=== PATIENT | female | born 1975 | race American Indian/Alaskan Native ===

== ENCOUNTER 2016-12-06 16:12 | Inpatient (IN) | payer OTHER, MEDICARE ==
[2016-12-06 16:25] VITALS: BMI 26.6
--- NOTE | 2016-12-06 17:08 | RAD ---
HISTORY: med clearence COMPARISON: No prior. FINDINGS: LUNGS: The pulmonary vasculature is slightly increased possibly due to poor inspiration with low lung volumes however the possibility of mild chronic compensated pulmonary edema/CHF not excluded. PLEURA: No significant pleural effusion identified, no pneumothorax apparent. CARDIOVASCULAR: Interval sternotomy and aortic valve replacement. Additionally, very thin metallic wires seen overlying the cardiac silhouette. Clinical correlation recommended. Heart size is within range of normal OSSEOUS STRUCTURES: No significant abnormalities. VISUALIZED UPPER ABDOMEN: Normal. OTHER FINDINGS: None. IMPRESSION: Interval sternotomy and aortic valve replacement. . The central pulmonary vasculature is slightly increased which may in part be due to low lung volumes however the possibility of mild chronic compensated pulmonary edema/CHF not excluded.
[2016-12-06] MEDS ORDERED: Vancomycin 1gm in NS 250ml 1 GM/250 ML BAG IVPB STA (17:33)
[2016-12-06 17:47] LABS: ADD MANUAL DIFF? NO
[2016-12-06 18:10] LABS: BASO # 0.02 K/mm3 (0.0-2.0); BASO % 0.2 % (0.0-3.0); EOS # 0.1 (0.0-0.7); EOS % 1.1 % (1.5-5.0); GRAN # 7.39 (1.4-6.5); GRAN % 68.6 % (50.0-68.0); HEMATOCRIT 39.3 % (36.0-48.0); LYMPH # 2.7 (1.2-3.4); LYMPH % 24.9 % (22.0-35.0); MEAN CELL VOLUME 87.3 fL (80.0-105.0); MEAN CORPUSCULAR HEMOGLOBIN 29.3 pg (25.0-35.0); MEAN CORPUSCULAR HGB CONC 33.6 g/dl (31.0-37.0); MEAN PLATELET VOLUME 9.9 fl (7.0-11.0); MONO # 0.6 (0.1-0.6); MONO % 5.2 % (1.0-6.0); PLATELET COUNT 267 10^3/uL (120.0-450.0); RED CELL DISTRIBUTION WIDTH 15.2 % (11.5-14.5); WHITE BLOOD COUNT 10.8 10^3/ul (4.5-11.0)
--- NOTE | 2016-12-06 18:10 | ED PDOC ---
Arrival/HPI - General Chief Complaint: Medical Clearance Time Seen by Provider: 12/06/16 16:38 - History of Present Illness Narrative History of Present Illness (Text): 12/06/16 16:38 A 41 year old female presents to the emergency department for evaluation of a 2 year duration of a reoccurring inferior right breast abscess. Patient was seen by Dr. Drake today and the patient was send to the emergency department for admission. Patient denies any fever, or other complaints at this time. PMD: Dr. Haddad Surgeon: Dr. Drake Time/Duration: Other (2 years) Symptom Onset: Other Symptom Course: Intermittent Quality: Other Activities at Onset: Rest Context: Home Past Medical History - Provider Review Nursing Documentation Reviewed: Yes - Reproductive Menopause: No - Cardiac Hx Cardiac Disorders: Yes Hx Hypertension: Yes Other/Comment: Pulmonary valve replacement - Pulmonary Hx Respiratory Disorders: No - Neurological Hx Neurological Disorder: No - HEENT Hx HEENT Disorder: No - Renal Hx Renal Disorder: No - Endocrine/Metabolic Hx Endocrine Disorders: No - Hematological/Oncological Hx Blood Disorders: No - Integumentary Hx Dermatological Disorder: No - Musculoskeletal/Rheumatological Hx Musculoskeletal Disorders: No - Gastrointestinal Hx Gastrointestinal Disorders: No - Genitourinary/Gynecological Hx Genitourinary Disorders: No - Psychiatric Hx Psychophysiologic Disorder: No Hx Substance Use: Yes (marijuana) - Surgical History Hx Valve Replacement: Yes Family/Social History - Physician Review Nursing Documentation Reviewed: Yes Family/Social History: Unknown Family HX Smoking Status: Light Smoker < 10 Cigarettes Daily Hx Alcohol Use: No Hx Substance Use: Yes (marijuana) Allergies/Home Meds Allergies/Adverse Reactions: Allergies dopamine Allergy (Verified 12/06/16 22:08) ITCHING Home Medications: Home Meds Medication Instructions Recorded Confirmed Nebivolol [Bystolic] 20 mg PO DAILY 12/06/16 12/06/16 Olmesartan Medoxomil [Benicar] 40 mg PO DAILY 12/06/16 12/06/16 Physical Exam - Physical Exam Narrative Physical Exam (Text): - Review of Systems Constitutional: Normal. absent: Fatigue, Weight Change, Fevers Eyes: Normal ENT: Normal Respiratory: Normal absent: SOB, Cough, Sputum Cardiovascular: Normal absent: Chest pain, Palpitations, Syncope Gastrointestinal: Normal absent: Abdominal pain, Diarrhea, Nausea, Vomiting Genitourinary: Normal. absent: Dysuria, Frequency, Hematuria Musculoskeletal: Normal. absent: Arthralgias, Back Pain, Neck Pain Skin: Right breast abscess. Neurological: Normal absent: Focal Weakness Endocrine: Normal Hemo/Lymphatic: Normal Psychiatric: Normal - Physical exam Patient appears age appropriate, speaking full sentences without difficulty - Systems Exam Head: Present: Atraumatic, Normocephalic Pupils: Present: PERRL Extraocular Muscles: Present: EOMI Conjunctiva: Present: Normal Mouth: Present: Moist Mucous Membranes Neck: Present: Normal Range of Motion. No: MIDLINE TENDERNESS, Paraspinal Tenderness Respiratory/Chest: Present: Clear to Auscultation, Good Air Exchange. No: Respiratory Distress, Accessory Muscle Use, Tachypneic Cardiovascular: Present: Regular Rate and Rhythm, Normal S1, S2, Peripheral Pulses Present. No: Murmurs Breast/Axillary: Right breast is erythematous, swollen, warm to the touch and tender around the nipple. No fluctuance. Small non-draining opening noted. 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 Abdomen: Present: Normal Bowel Sounds, No: Tenderness, Peritoneal Signs, Rebound, Guarding, Distention Back: Present: Normal Inspection. No: Midline Tenderness, Paraspinal Tenderness Upper Extremity: Present: Normal Inspection. No: Cyanosis, Edema Lower Extremity: Present: Normal Inspection. No: Edema Neurological: Present: GCS=15, Speech Normal, cranial nerves II through XII fully intact with no cerebellar abnormality, neuro-sensory fully intact. No focal neurological deficits. Skin: Present: Warm, Dry, Normal Color. No: Rashes Lymphatic: Present: OX3, NI, NC Psychiatric: Present: Alert, Oriented x 3, Normal Insight, Normal Concentration Vital Signs Reviewed: Yes Vital Signs Temp Pulse Resp BP Pulse Ox 12/06/16 18:23 99.0 F 74 18 153/101 H 100 12/06/16 16:23 99.1 F 83 18 213/133 H 98 Temperature: Afebrile Blood Pressure: Hypertensive Pulse: Regular Respiratory Rate: Normal Appearance: Positive for: Well-Appearing, Non-Toxic, Comfortable Pain Distress: None Mental Status: Positive for: Alert and Oriented X 3 Medical Decision Making ED Course and Treatment: 12/06/16 16:38 Impression: A 41 year old female with a reccurring breast abscess. Differential Diagnosis include but are not limited to: Abscess Plan: -- Chest X-ray -- Labs -- Reassess and disposition Prior Visits: Notes and results from previous visits were reviewed. The patient has a Mammogram on 10/17/16, which showed no evidence of malignancy but did show bilateral axillary complexes consistent with abscesses. Progress Notes: 12/06/16 17:10 Chest X-ray: Creator : Hiren Nails MD IMPRESSION: Interval sternotomy and aortic valve replacement. The central pulmonary vasculature is slightly increased which may in part be due to low lung volumes however the possibility of mild chronic compensated pulmonary edema /CHF not excluded. 12/06/16 17:[address] Drake in detail. He states he will take the patient to the OR tomorrow and to keep the patient NPO past midnight. I have discussed the results and plan with the patient, who expresses understanding. Patient given the opportunity to ask question, all questions were answered and there is agreement with the plan to be admitted to the hospital. - Lab Interpretations Lab Results: 12/06/16 17:35 12/06/16 17:35 Lab Results 12/06/16 17:35: Sodium 141, Potassium 4.1, Chloride 103, Carbon Dioxide 29, Anion Gap 13, BUN 13, Creatinine 0.8, Est GFR ( Amer) > 60, Est GFR (Non- Af Amer) > 60, Random Glucose 90, Calcium 9.7, Total Bilirubin 0.4, AST 25, ALT 31, Alkaline Phosphatase 59, Total Protein 7.8, Albumin 3.9, Globulin 3.9, Albumin/Globulin Ratio 1.0 L 12/06/16 17:35: PT 11.4, INR 1.06, APTT 27.2 12/06/16 17:35: WBC 10.8, RBC 4.50, Hgb 13.2, Hct 39.3, MCV 87.3, MCH 29.3, MCHC 33.6, RDW 15.2 H, Plt Count 267, MPV 9.9, Gran % 68.6 H, Lymph % (Auto) 24.9, [place] % (Auto) 5.2, Eos % (Auto) 1.1 L, Baso % (Auto) 0.2, Gran # 7.39 H, Lymph # 2.7, [place] # 0.6, Eos # 0.1, Baso # 0.02 I have reviewed the lab results: Yes - RAD Interpretation Radiology Orders: 12/06/16 16:44 CHEST PORTABLE [RAD] Stat - Medication Orders Current Medication Orders: Discontinued Medications Acetaminophen (Tylenol 325mg Tab) 650 mg PO Q6 PRN PRN Reason: Fever >100.4 F Last Admin: 12/06/16 21:08 Dose: 650 mg Cefazolin Sodium (Ancef) Confirm Administered Dose 1 gm .ROUTE .STK-MED ONE Stop: 12/07/16 11:16 Last Admin: 12/07/16 11:15 Dose: 1 gm Clonidine HCl (Catapres Tts1 0.1 Mg/24 Hr) 1 patch TD ONCE ONE Stop: 12/06/16 20:43 Last Admin: 12/06/16 21:05 Dose: 1 patch Clonidine HCl (Catapres) 0.1 mg PO BID STA Stop: 12/07/16 12:42 Clonidine HCl (Catapres) 0.1 mg PO .STK-MED ONE Stop: 12/07/16 12:51 Last Admin: 12/07/16 12:50 Dose: 0.1 mg Dexamethasone (Decadron Inj) Confirm Administered Dose 10 mg .ROUTE .STK-MED ONE Stop: 12/07/16 11:36 Diphenhydramine HCl (Benadryl) Confirm Administered Dose 50 mg .ROUTE .STK-MED ONE Stop: 12/07/16 12:12 Diphenhydramine HCl (Benadryl) 25 mg IVP ONCE ONE Stop: 12/07/16 12:16 Diphenhydramine HCl (Benadryl) 25 mg IVP .STK-MED ONE Stop: 12/07/16 12:16 Last Admin: 12/07/16 12:15 Dose: 25 mg Fentanyl (Fentanyl) Confirm Administered Dose 100 mcg .ROUTE .STK-MED ONE Stop: 12/07/16 11:03 Fentanyl (Fentanyl) Confirm Administered Dose 100 mcg .ROUTE .STK-MED ONE Stop: 12/07/16 11:25 Furosemide (Lasix) 40 mg IVP ONCE ONE Stop: 12/06/16 20:42 Last Admin: 12/06/16 21:06 Dose: 40 mg Hydralazine HCl (Apresoline) 10 mg PO QID PRN PRN Reason: for SBP>170 & diastolic>100 Last Admin: 12/07/16 14:39 Dose: 10 mg Hydromorphone HCl (Dilaudid) 0.5 mg IVP Q15M PRN PRN Reason: Pain, moderate (4-7) Vancomycin HCl (Vancomycin 1gm) 1 gm in 250 mls @ 133.333 mls/hr IVPB STAT STA PRN Reason: Protocol Stop: 12/06/16 19:25 Last Admin: 12/06/16 18:06 Dose: 133.333 mls/hr Vancomycin HCl (Vancomycin 1gm) 1 gm in 250 mls @ 167 mls/hr IVPB Q12H SARITA PRN Reason: Protocol Last Admin: 12/08/16 07:49 Dose: 167 mls/hr Sodium Chloride (Sodium Chloride 0.9%) 1,000 mls @ 100 mls/hr IV .Q10H SARITA Last Admin: 12/08/16 08:01 Dose: 100 mls/hr Lactated Ringer's (Lactated Ringer's) 1,000 mls @ 75 mls/hr IV .[id number] [facility] Stop: 12/07/16 14:04 Labetalol HCl (Trandate) 100 mg PO BID [facility] Labetalol HCl (Trandate) 100 mg PO BID [facility] Last Admin: 12/08/16 09:22 Dose: 100 mg Lidocaine (Lidocaine (Bolus)) Confirm Administered Dose 100 mg IV .STK-MED ONE Stop: 12/07/16 11:03 Lisinopril (Zestril) 40 mg PO DAILY [facility] Lisinopril (Zestril) 40 mg PO ONCE STA Stop: 12/06/16 20:44 Last Admin: 12/06/16 21:09 Dose: 40 mg Lisinopril (Zestril) 40 mg PO DAILY [facility] Last Admin: 12/08/16 09:22 Dose: 40 mg Midazolam HCl (Versed Inj) Confirm Administered Dose 2 mg .ROUTE .STK-MED ONE Stop: 12/07/16 11:03 Morphine Sulfate (Morphine) 2 mg IVP Q4H PRN PRN Reason: Pain, moderate (4-7) Last Admin: 12/07/16 21:38 Dose: 2 mg Re-Assess: [facility] Pain Assessment Document 12/07/16 22:38 MARI (Rec: 12/08/16 07:04 MARI [id number]) Pain Reassessment Is this a pain reassessment? Yes Presence of Pain Presence of Pain No Ondansetron HCl (Zofran Inj) 4 mg IVP Q4H PRN PRN Reason: Nausea/Vomiting Ondansetron HCl (Zofran Inj) Confirm Administered Dose 4 mg .ROUTE .STK-MED ONE Stop: 12/07/16 11:36 Ondansetron HCl (Zofran Inj) 4 mg IVP ONCE PRN PRN Reason: Nausea/Vomiting Oxycodone/Acetaminophen (Percocet 5/325 Mg Tab) 1 tab PO Q4H PRN PRN Reason: Pain, moderate (4-7) Stop: 12/10/16 11:53 Pantoprazole Sodium (Protonix Inj) 40 mg IVP DAILY [facility] Last Admin: 12/07/16 13:55 Dose: Pantoprazole Sodium (Protonix Ec Tab) 40 mg PO ACB [facility] Last Admin: 12/08/16 08:04 Dose: 40 mg Propofol (Diprivan) Confirm Administered Dose 200 mg .ROUTE .STK-MED ONE Stop: 12/07/16 11:03 - Scribe Statement The provider has reviewed the documentation as recorded by the Agnes Steiner Provider Scribe Attestation: All medical record entries made by the Agnes were at my direction and personally dictated by me. I have reviewed the chart and agree that the record accurately reflects my personal performance of the history, physical exam, medical decision making, and the department course for this patient. I have also personally directed, reviewed, and agree with the discharge instructions and disposition. Disposition/Present on Arrival - Present on Arrival Any Indicators Present on Arrival: No History of DVT/PE: No History of Uncontrolled Diabetes: No Urinary Catheter: No History of Decub. Ulcer: No History Surgical Site Infection Following: None - Disposition Have Diagnosis and Disposition been Completed?: Yes Diagnosis: Abscess Disposition: HOSPITALIZED Disposition Time: 17:45 Patient Plan: Admission Condition: GOOD
[2016-12-06 18:12] LABS: ALKALINE PHOSPHATASE 59 U/L (38-133); ALT/SGPT 31 U/L (7-56); AST/SGOT 25 U/L (15-39); BILIRUBIN,TOTAL 0.4 mg/dL (0.2-1.3); BLOOD UREA NITROGEN 13 mg/dL (7-21); CALCIUM 9.7 mg/dL (8.4-10.5); CARBON DIOXIDE 29 mmol/L (21-33); CHLORIDE 103 mmol/L (98-107); GFR AFRICAN-AMERICAN > 60; GLUCOSE,RANDOM 90 mg/dL (70-110); POTASSIUM 4.1 mmol/L (3.6-5.0); SODIUM 141 mmol/L (132-148); TOTAL PROTEIN 7.8 g/dL (5.8-8.3)
[2016-12-06 18:17] LABS: INR 1.06 (0.93-1.08); PARTIAL THROMBOPLASTIN TIME 27.2 Seconds (23.7-30.8)
[2016-12-06] MEDS: Morphine 2 mg/ml ISec IVP PRN (21:07)
--- NOTE | 2016-12-06 22:07 | CP.PCM.HP ---
History of Present Illness - History of Present Illness History of Present Illness: General Surgery H&P for Dr. 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 Drake office for painful, swollen right breast for 2 days with drainage. Patient states that she woke up on Tuesday morning with redness, pain and swelling in the right breast. She states that this is a recurrent problem for her for years. She had a surgery to excise a sebaceous cyst in 2010 and an I&D for a R breast abscess last year. After the operation last year the wound never closed all the way and whenever she has her menses she notes an increase in pain and drainage of a foul smelling, purulent fluid from a small wound. This last 1-2 days and then resolves. The past few days, however, she states her symptoms are worse than usual and have not resolved. Patient reports that she also has swelling and pain in her left axilla and thought she might be developing an infection there as well. Patient reports feeling midly febrile since last night, with chills, but denies CP, SOB, cough, tachycardia, nausea, vomiting, diarrhea, constipation , numbness or tingling anywhere, back pain, or any sick contacts. Patient states that she has a chronic problem with intermittent pedal edema, for which she used to take lasix, but that was D/C'd by her PMD, Dr. Araiza. 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 absent: Wheezing - Gastrointestinal Gastrointestinal: absent: Abdominal Pain, Constipation, Diarrhea, Heartburn, Nausea, Vomiting - Genitourinary Genitourinary: absent: Dysuria, Flank Pain, Hematuria - Reproductive: Female Reproductive:Female: Currently Menstual. absent: S/P Hysterectomy, Menopausal, Post Menopausal - Menstruation Menstruation: Currently Menstual - Musculoskeletal Musculoskeletal: absent: Back Pain, Numbness, Tingling - Integumentary Integumentary: As Per HPI - Neurological Neurological: absent: Dizziness, Numbness, Tingling - Psychiatric Psychiatric: Anxiety Past Patient History - Past Medical History & Family History Past Family History: Reviewed and not pertinent - Past Social History Smoking Status: Light Smoker < 10 Cigarettes Daily - CARDIAC Hx Cardiac Disorders: Yes Hx Hypertension: Yes Other/Comment: Pulmonary valve replacement - PULMONARY Hx Respiratory Disorders: No - NEUROLOGICAL Hx Neurological Disorder: No - HEENT Hx HEENT Problems: No - RENAL Hx Chronic Kidney Disease: No - ENDOCRINE/METABOLIC Hx Endocrine Disorders: No - HEMATOLOGICAL/ONCOLOGICAL Hx Blood Disorders: No - INTEGUMENTARY Hx Dermatological Problems: No - MUSCULOSKELETAL/RHEUMATOLOGICAL Hx Musculoskeletal Disorders: No - GASTROINTESTINAL Hx Gastrointestinal Disorders: No - GENITOURINARY/GYNECOLOGICAL Hx Genitourinary Disorders: No - PSYCHIATRIC Hx Psychophysiologic Disorder: No Hx Substance Use: Yes (marijuana) - SURGICAL HISTORY Hx Surgeries: Yes Hx Section: Yes Hx Valve Replacement: Yes Other/Comment: Multiple I&D's of R Breast and BL axilla abscesses Meds Allergies/Adverse Reactions: Allergies Allergy/AdvReac Type Severity Reaction Status Date / Time dopamine Allergy ITCHING Verified 12/06/16 22:08 Physical Exam - Constitutional Appears: Well, Non-toxic, No Acute Distress - Head Exam Head Exam: ATRAUMATIC, NORMOCEPHALIC - Eye Exam Eye Exam: Normal appearance. absent: Conjunctival injection, Scleral icterus - ENT Exam ENT Exam: Mucous Membranes Moist, Normal Oropharynx - Respiratory Exam Respiratory Exam: Clear to Auscultation Bilateral, NORMAL BREATHING PATTERN. absent: Accessory Muscle Use, Respiratory Distress - Cardiovascular Exam Cardiovascular Exam: REGULAR RHYTHM, +S1, +S2. absent: Systolic Murmur - GI/Abdominal Exam GI & Abdominal Exam: Soft. absent: Distended, Tenderness - Extremities Exam Extremities exam: Positive for: pedal edema (trace pitting edema on feet and calves BL), pedal pulses present. Negative for: calf tenderness, tenderness Additional comments: Surgical scars present in Axilla BL, moderate tenderness to palpation BL, Mild swelling in the L axilla with no definite fluctuance or expressible drainage - Back Exam Back exam: NORMAL INSPECTION. absent: CVA tenderness (L), CVA tenderness (R), paraspinal tenderness - Neurological Exam Neurological exam: Alert, Oriented x3 - Psychiatric Exam Psychiatric exam: Normal Affect, Normal Mood - Skin Skin Exam: Dry, Warm Additional comments: R breast cellulitis, inverted nipple, and small area of skin breakdown on the medial edge of the nipple with minimal amount of brown fluid expressible, tender to the touch with some fluctuation palpable Results - Vital Signs Recent Vital Signs: Last Vital Signs Temp 99.0 F 12/06/16 18:23 Pulse 95 H 12/06/16 21:05 Resp 18 12/06/16 18:23 BP 198/96 H 12/06/16 21:06 Pulse Ox 100 12/06/16 18:23 - Labs Result Diagrams: 12/06/16 17:35 12/06/16 17:35 Assessment & Plan - Assessment and Plan (Free Text) Assessment: 41 Americal female with PMH of HTN, pulmonary valve replacement x2, and recurrent right breast abscess and hydradenitis spuritiva of BL axilla who presented to the ED for pre-op admission afebrile, HTNsive at 213/133, normocardic CXR: increased pulmonary vasculature indicative of low lung volumes vs mild chronic compensated pulmonary edema vs CHF 10/17/16 Mammogram: no malignancy, BL axillary complexities consistent with abscesses 10/17/16 breast US: simple cyst of R breast @9 o'clock, BL axillary subcutaneous collections in areas of known abscesses Plan -OR tomorrow for I&D of right breast probable abscess -Cardiology consult for pre-op clearance/HTN -repeat CXR and EKG in the AM -f/u AM labs -Clonidine, lisinopril, lasix, labetolol for HTN, will modify as needed -NPO after midnight -no IVF given HTN -morphine for analgesia -anti-emetics, protonix, SCD's Patient discussed with Dr. Vidal Norwood, PGY1
[2016-12-07] MEDS ORDERED: Sodium Chloride 0.9% 100 ML IV SCH
[2016-12-07 07:05] LABS: ADD MANUAL DIFF? NO
[2016-12-07 07:15] LABS: BASO # 0.01 K/mm3 (0.0-2.0); BASO % 0.1 % (0.0-3.0); EOS # 0.2 (0.0-0.7); GRAN # 5.68 (1.4-6.5); GRAN % 71.2 % (50.0-68.0); LYMPH # 1.7 (1.2-3.4); LYMPH % 20.8 % (22.0-35.0); MEAN CELL VOLUME 86.4 fL (80.0-105.0); MEAN CORPUSCULAR HEMOGLOBIN 28.7 pg (25.0-35.0); MEAN CORPUSCULAR HGB CONC 33.3 g/dl (31.0-37.0); MEAN PLATELET VOLUME 9.6 fl (7.0-11.0); MONO # 0.5 (0.1-0.6); MONO % 5.9 % (1.0-6.0); PLATELET COUNT 252 10^3/uL (120.0-450.0); RED CELL DISTRIBUTION WIDTH 15.1 % (11.5-14.5)
[2016-12-07 07:41] LABS: ALKALINE PHOSPHATASE 66 U/L (38-133); ALT/SGPT 31 U/L (7-56); AST/SGOT 28 U/L (15-39); BILIRUBIN,TOTAL 0.4 mg/dL (0.2-1.3); BLOOD UREA NITROGEN 12 mg/dL (7-21); CALCIUM 8.7 mg/dL (8.4-10.5); CARBON DIOXIDE 26 mmol/L (21-33); CHLORIDE 105 mmol/L (95-110); GFR AFRICAN-AMERICAN > 60; GLUCOSE,RANDOM 102 mg/dL (70-110); POTASSIUM 3.9 mmol/L (3.6-5.0); SODIUM 138 mmol/L (132-148); TOTAL PROTEIN 7.9 g/dL (5.8-8.3)
--- NOTE | 2016-12-07 08:29 | RAD ---
HISTORY: re-eval pulm edema COMPARISON: Comparison is made to the previous study dated 12/06/2016 FINDINGS: LUNGS: Interval mild improvement in the lungs since the previous exam. No evidence of new infiltrate or consolidation in the lungs. PLEURA: No significant pleural effusion identified, no pneumothorax apparent. CARDIOVASCULAR: The cardiac silhouette is mildly enlarged/upper normal limit in size. Post cardiac surgery changes and metallic valve are again seen. OSSEOUS STRUCTURES: No significant abnormalities. VISUALIZED UPPER ABDOMEN: Normal. OTHER FINDINGS: None. IMPRESSION: Interval mild improvement in the lungs since the previous study. Otherwise no significant interval change.
[2016-12-07] MEDS: Sodium Chloride 0.9% 1,000 ML IV SCH ×2 (09:27→18:09)
--- NOTE | 2016-12-07 09:50 | CARD ---
APPROVED REPORT EKG Measurement Heart [id number] <Conclusion> Normal sinus rhythm Possible Left atrial enlargement Anteroseptal infarct, age undetermined Abnormal ECG
--- NOTE | 2016-12-07 10:02 | CP.PCM.CON ---
<Bambi Keys - Last Filed: 12/07/16 14:39> History of Present Illness - History of Present Illness History of Present Illness: Medicine consult note for Dr Raymundo/ Dr Haddad service Reason for consult: uncontrolled htn Patient is a 41 y/o with PMH of htn, h/o congenital heart disease with pulmonic valve replacement x2, recurrent breast abscess presented with right breast abscesses, with drainage. Patient is currently admitted under surgical service, and medicine is consulted for management of patient's uncontrolled hypertension. Patient states she didn't' take her BP meds prior to presenting to the ED yesterday. Patient states she supposed to be taking benicar and bystolis at home. Patient states her BP has always been the high, in 160s systolic even when taking BP meds. Patient denies chest pain, sob, headache, dizziness. Patient denies n/v/d. Patient sees Dr Haddad in the office, last time she say him was few weeks ago. 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 Social: used to smoke marijuana. Denies alcohol, tobacco or illicit drug use. Lives with spouse and daughter. Allergy: dopamine Home meds: please see emr for full list. Review of Systems - Review of Systems All systems: reviewed and no additional remarkable complaints except Review of Systems: As mentioned in the HPI. Past Patient History - Tetanus Immunizations Tetanus Immunization: Unknown - Past Medical History & Family History Past Family History: Reviewed and not pertinent - Past Social History Smoking Status: Light Smoker < 10 Cigarettes Daily Alcohol: None Drugs: Denies Home Situation {Lives}: With Family - CARDIAC Hx Cardiac Disorders: Yes Hx Heart Murmur: Yes Other/Comment: Pulmonary valve replacement x2. Open cardiac valve replacement x2 - PULMONARY Hx Respiratory Disorders: Yes Hx Pneumonia: Yes - NEUROLOGICAL Hx Neurological Disorder: No - HEENT Hx HEENT Problems: No - RENAL Hx Chronic Kidney Disease: No - ENDOCRINE/METABOLIC Hx Endocrine Disorders: No - HEMATOLOGICAL/ONCOLOGICAL Hx Blood Disorders: No - INTEGUMENTARY Hx Dermatological Problems: Yes Other/Comment: Recurrent abcesses - MUSCULOSKELETAL/RHEUMATOLOGICAL Hx Musculoskeletal Disorders: No Hx Falls: No - GASTROINTESTINAL Hx Gastrointestinal Disorders: No - GENITOURINARY/GYNECOLOGICAL Hx Genitourinary Disorders: No - PSYCHIATRIC Hx Psychophysiologic Disorder: Yes Hx Anxiety: Yes Hx Substance Use: Yes - SURGICAL HISTORY Hx Surgeries: Yes Meds Allergies/Adverse Reactions: Allergies Allergy/AdvReac Type Severity Reaction Status Date / Time dopamine Allergy ITCHING Verified 12/06/16 22:08 - Medications Medications: Current Medications Acetaminophen (Tylenol 325mg Tab) 650 mg PO Q6 PRN PRN Reason: Fever >100.4 F Last Admin: 12/06/16 21:08 Dose: 650 mg Clonidine HCl (Catapres) 0.1 mg PO BID PRN PRN Reason: Systolic Blood Pressure Vancomycin HCl (Vancomycin 1gm) 1 gm in 250 mls @ 167 mls/hr IVPB Q12H [facility] PRN Reason: Protocol Sodium Chloride (Sodium Chloride 0.9%) 1,000 mls @ 100 mls/hr IV .Q10H [facility] Last Admin: 12/07/16 09:27 Dose: 100 mls/hr Labetalol HCl (Trandate) 100 mg PO BID [facility] Last Admin: 12/07/16 09:21 Dose: 100 mg Lisinopril (Zestril) 40 mg PO DAILY [facility] Morphine Sulfate (Morphine) 2 mg IVP Q4H PRN PRN Reason: Pain, moderate (4-7) Last Admin: 12/06/16 21:07 Dose: 2 mg Ondansetron HCl (Zofran Inj) 4 mg IVP Q4H PRN PRN Reason: Nausea/Vomiting Pantoprazole Sodium (Protonix Inj) 40 mg IVP DAILY [facility] Physical Exam - Constitutional Appears: No Acute Distress - Head Exam Head Exam: ATRAUMATIC, NORMAL INSPECTION, NORMOCEPHALIC - Eye Exam Eye Exam: Normal appearance, PERRL. absent: Scleral icterus - ENT Exam ENT Exam: Mucous Membranes Dry - Neck Exam Neck exam: Positive for: Normal Inspection - Respiratory Exam Respiratory Exam: Clear to Auscultation Bilateral, NORMAL BREATHING PATTERN. absent: Rhonchi, Wheezes, Respiratory Distress, Stridor - Cardiovascular Exam Cardiovascular Exam: REGULAR RHYTHM, RRR, +S1, +S2. absent: Irregular Rhythm, Systolic Murmur - GI/Abdominal Exam GI & Abdominal Exam: Normal Bowel Sounds, Soft. absent: Distended, Firm, Tenderness - Extremities Exam Extremities exam: Positive for: normal inspection. Negative for: pedal edema - Back Exam Back exam: NORMAL INSPECTION - Neurological Exam Neurological exam: Alert, Oriented x3 - Psychiatric Exam Psychiatric exam: Normal Affect, Normal Mood - Skin Skin Exam: Normal Color, Warm Additional comments: Right side of the breast with clean dressing. Results - Vital Signs Recent Vital Signs: Last Vital Signs Temp 98.4 F 12/07/16 09:40 Pulse 72 12/07/16 09:40 Resp 23 12/07/16 09:40 BP 196/106 H 12/07/16 09:40 Pulse Ox 98 12/07/16 09:40 - Labs Result Diagrams: 12/07/16 06:00 12/07/16 06:00 Labs: Laboratory Results - last 24 hr 12/07/16 12/07/16 06:00 06:00 WBC 8.0 D RBC 4.63 Hgb 13.3 Hct 40.0 MCV 86.4 MCH 28.7 MCHC 33.3 RDW 15.1 H Plt Count 252 MPV 9.6 Gran % 71.2 H Lymph % (Auto) 20.8 L Hopkins % (Auto) 5.9 Eos % (Auto) 2.0 Baso % (Auto) 0.1 Gran # 5.68 Lymph # 1.7 Hopkins # 0.5 Eos # 0.2 Baso # 0.01 Sodium 138 Potassium 3.9 Chloride 105 Carbon Dioxide 26 Anion Gap 11 BUN 12 Creatinine 0.7 Est GFR ( Amer) > 60 Est GFR (Non-Af Amer) > 60 Random Glucose 102 Calcium 8.7 Total Bilirubin 0.4 AST 28 ALT 31 Alkaline Phosphatase 66 Total Protein 7.9 Albumin 3.9 Globulin 4.0 Albumin/Globulin Ratio 1.0 L Assessment & Plan - Assessment and Plan (Free Text) Assessment: Patient is a 41 y/o with PMH of htn, aortic valve replacement, recurrent breast abscess admitted with breast abscess. Medicine is consulted for management of htn. Plan: 1) Uncontrolled htn likely secondary to medication non compliance. -Patient is currently on lisinopril 40 mg daily, and labetalol 100 mg bid. - Patient is also on hydralazine prn - Will continue to monitor BP. - heart healthy diet 2) Breast abscess - management as per surgical team. 3) DVT/Gi prophylaxis: SCDs, and protonix. Patient seen, examined, case discussed with the attending. - Date & Time Date: 12/07/16 Time: 14:00 <Butch Raymundo - Last Filed: 12/31/16 08:48> Results - Vital Signs Recent Vital Signs: Last Vital Signs Temp 98.5 F 12/08/16 06:00 Pulse 98 H 12/08/16 09:22 Resp 20 12/08/16 06:00 BP 155/65 H 12/08/16 09:22 Pulse Ox 98 12/08/16 06:00 - Labs Result Diagrams: 12/08/16 07:00 12/08/16 07:00 Attending/Attestation - Attestation I have personally seen and examined this patient.: Yes I have fully participated in the care of the patient.: Yes I have reviewed all pertinent clinical information: Yes Notes (Text): 12/31/16 08:48 Medical record note made by the resident after discussion with my direction and input after the patient was personally seen and examined by me. I have reviewed the chart and agree that the record reflects my personal performance of history, physical, data review and course for the patient that I have planned.
[2016-12-07 10:18] VITALS: RESP 20
[2016-12-07] MEDS ORDERED: Midazolam 2 MG/2 ML VIAL ONE (11:02)
[2016-12-07] MEDS ORDERED: Propofol 10 mg/ml Inj (20 ML) ONE (11:02)
[2016-12-07] MEDS ORDERED: Oxycodone/Acetaminophen 5/325 mg Tab PO PRN (11:52)
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
--- NOTE | 2016-12-07 11:58 | PCM.SURG1 ---
Surgeon's Initial Post Op Note - Surgeon's Notes Surgeon: jacob Toaster Element Repairer: none Type of Anesthesia: General LMA Anesthesia Administered By: Dr Kirby Pre-Operative Diagnosis: Rec R breast abscess Operative Findings: abscess Post-Operative Diagnosis: same Operation Performed: Partial Mastectomy(Debridement) Specimen/Specimens Removed: Portion breast Estimated Blood Loss: EBL {In ML}: 10 Blood Products Given: N/A Drains Used: No Drains Post-Op Condition: Good Date of Surgery/Procedure: 12/07/16 Time of Surgery/Procedure: 11:57
[2016-12-07] MEDS ORDERED: HYDROmorphone 0.5 mg/0.5 ml ISec IVP PRN ×2 (12:03→12:07)
[2016-12-07] MEDS ORDERED: Lactated Ringer's 1,000 ML IV SCH (12:03)
[2016-12-07] MEDS ORDERED: DiphenhydrAMINE 50 mg/ml Inj ONE (12:11)
--- NOTE | 2016-12-07 12:12 | OP ---
PROCEDURE DATE: 12/07/2016 SURGEON: Carlitos Drake MD NATIONAL SALES EXECUTIVE: Dr. Kirby ANESTHESIA: General -- LMA -- Marcaine 0.5-13 mL. PREOPERATIVE DIAGNOSES: 1. Recurring right breast abscess. 2. Hidradenitis suppurativa bilateral axilla. 3. Hypertensive coronary artery disease. POSTOPERATIVE DIAGNOSES: 1. Recurring right breast abscess. 2. Hidradenitis suppurativa bilateral axilla. 3. Hypertensive coronary artery disease. PROCEDURES: 12/07/2016: 1. Right partial mastectomy. 2. Drainage of abscess. OPERATIVE INDICATION: The patient is a 41-year-old female with an extremely extensi ve cardiovascular history of having had 2 heart surgeries with valve replacements (biologic) and a hi story of very severe hypertension. She has been developing axillary hidradenitis that has been conse rvatively managed at this point and will address that in the future. For the past several menstrual cycles each month, she develops extremely exquisite pain, swelling and drainage from her right breast . No longer able to take this, she comes to the Emergency Room where she is admitted, given antibiot ics, blood pressure is controlled (240/140) and now brought to the operating room for a debridement a nd removal of the ductal system under the nipple. Risks, benefits and alternatives with their antici pated outcomes were discussed with the patient. OPERATIVE NOTE: The patient is brought to the operating room from the holding area. The area on the right breast has been marked with pen. She is identified by her wrist band, undergoes timeout proce dure, and is placed on the table in a supine manner. Following the induction of general anesthesia and the insertion of an intralaryngeal mask, the right breast is prepped with Betadine and she is aseptically draped. Circumareolar incision is made in the right breast from 3 o'clock to 12 o'clock superiorly with caute ry dissection down to the breast tissues past the skin. Utilizing dissection with the cautery scalpe l and hemostasis with a coagulating current, the ductal system and a large portion of the anterior br east is dissected free (partial mastectomy). The ductal content is cultured aerobically and anaerobi sandoval and the nipple is re-everted with a 2-0 Polysorb [id number] suture from the inside. The w ound is now lavaged with saline. The specimen is submitted to pathology in formalin and the skin is closed with several sutures of 0 Prolene interrupted suture and the wound is packed with iodoform gau ze and a dry dressing applied. The patient is awakened, extubated and transported to the recovery room in a satisfactory condition. Sponge, instrument and suture count were verified as correct at the end of the procedure. Estimated blood loss during this procedure was less than 10 mL of blood. This dictation will be electronically signed without being read. Carlitos Drake MD cc: [phone] TT: 12/07/2016 12:11:44 en
[2016-12-07] MEDS ORDERED: DiphenhydrAMINE 50 mg/ml Inj IVP ONE ×2 (12:15)
[2016-12-07 17:44] VITALS: O2SAT 98
[2016-12-07] MEDS: Vancomycin 1gm in NS 250ml 1 GM/250 ML BAG IVPB SCH (18:18)
[2016-12-07] MEDS: Morphine 2 mg/ml ISec IVP PRN (21:38)
--- NOTE | 2016-12-08 07:02 | CP.PCM.PN ---
<Bambi Keys - Last Filed: 12/08/16 12:56> Subjective - Date & Time of Evaluation Date of Evaluation: 12/08/16 Time of Evaluation: 07:25 - Subjective Subjective: Medicine progress note for Dr Raymundo and Boo huggins. Patient in no acute distress. No overnight acute events. Patient with no complaints. Patient denies cp, sob, headache or dizziness. Patient is able to walk to the bathroom. S/p right breast surgery POD#1. Objective - Vital Signs/Intake and Output Vital Signs (last 24 hours): Temp Pulse Resp BP Pulse Ox 99.1 F 81 20 139/84 98 12/07/16 16:00 12/07/16 22:00 12/07/16 16:00 12/07/16 18:17 12/07/16 16:00 Intake and Output: 12/08/16 12/08/16 06:59 18:59 Intake Total 660 Balance 660 - Medications Medications: Current Medications Acetaminophen (Tylenol 325mg Tab) 650 mg PO Q6 PRN PRN Reason: Fever >100.4 F Last Admin: 12/06/16 21:08 Dose: 650 mg Hydralazine HCl (Apresoline) 10 mg PO QID PRN PRN Reason: for SBP>170 & diastolic>100 Last Admin: 12/07/16 14:39 Dose: 10 mg Hydromorphone HCl (Dilaudid) 0.5 mg IVP Q15M PRN PRN Reason: Pain, moderate (4-7) Vancomycin HCl (Vancomycin 1gm) 1 gm in 250 mls @ 167 mls/hr IVPB Q12H [facility] PRN Reason: Protocol Last Admin: 12/07/16 18:18 Dose: 167 mls/hr Sodium Chloride (Sodium Chloride 0.9%) 1,000 mls @ 100 mls/hr IV .Q10H [facility] Last Admin: 12/07/16 18:09 Dose: 100 mls/hr Labetalol HCl (Trandate) 100 mg PO BID [facility] Last Admin: 12/07/16 18:17 Dose: 100 mg Lisinopril (Zestril) 40 mg PO DAILY [facility] Last Admin: 12/07/16 13:58 Dose: 40 mg Morphine Sulfate (Morphine) 2 mg IVP Q4H PRN PRN Reason: Pain, moderate (4-7) Last Admin: 12/07/16 21:38 Dose: 2 mg Ondansetron HCl (Zofran Inj) 4 mg IVP Q4H PRN PRN Reason: Nausea/Vomiting Oxycodone/Acetaminophen (Percocet 5/325 Mg Tab) 1 tab PO Q4H PRN PRN Reason: Pain, moderate (4-7) Stop: 12/10/16 11:53 Pantoprazole Sodium (Protonix Ec Tab) 40 mg PO ACB [facility] - Labs Labs: 12/07/16 06:00 12/07/16 06:00 PT 11.4 Seconds (9.9-11.8) 12/06/16 17:35 INR 1.06 (0.93-1.08) 12/06/16 17:35 APTT 27.2 Seconds (23.7-30.8) 12/06/16 17:35 Assessment and Plan - Assessment and Plan (Free Text) Assessment: Patient is a 41 y/o with PMH of htn, aortic valve replacement, recurrent breast abscess admitted with breast abscess. Medicine is consulted for management of htn. Plan: 1) Hypertension- controlled -continue lisinopril 40 mg daily, and labetalol 100 mg bid. - Patient is also on hydralazine prn - Will continue to monitor BP. - heart healthy diet 2) Breast abscess s/p surgery - management as per surgical team. 3) DVT/Gi prophylaxis: SCDs, and protonix. Patient seen, examined, case discussed with the attending. <Kirill Haddad - Last Filed: 12/10/16 09:20> Objective - Vital Signs/Intake and Output Vital Signs (last 24 hours): Temp Pulse Resp BP Pulse Ox 98.5 F 98 H 20 155/65 H 98 12/08/16 06:00 12/08/16 09:22 12/08/16 06:00 12/08/16 09:22 12/08/16 06:00 - Labs Labs: 12/08/16 07:00 12/08/16 07:00 PT 11.4 Seconds (9.9-11.8) 12/06/16 17:35 INR 1.06 (0.93-1.08) 12/06/16 17:35 APTT 27.2 Seconds (23.7-30.8) 12/06/16 17:35 Attending/Attestation - Attestation I have personally seen and examined this patient.: Yes I have fully participated in the care of the patient.: Yes I have reviewed all pertinent clinical information, including history, physical exam and plan: Yes Notes (Text): 12/10/16 09:20 Medical record note made by the resident after discussion with my direction and input after the patient was personally seen and examined by me. I have reviewed the chart and agree that the record accurately reflects by personal performance of the history, physical exam, data review, and medical decision-making, in the course for the patient. I have also personally directed the plan of care.
[2016-12-08 07:08] LABS: ADD MANUAL DIFF? NO
[2016-12-08 07:17] LABS: BASO # 0.01 K/mm3 (0.0-2.0); BASO % 0.1 % (0.0-3.0); EOS % 0.2 % (1.5-5.0); GRAN # 10.67 (1.4-6.5); GRAN % 78.8 % (50.0-68.0); LYMPH # 2.1 (1.2-3.4); LYMPH % 15.4 % (22.0-35.0); MEAN CELL VOLUME 86.7 fL (80.0-105.0); MEAN CORPUSCULAR HEMOGLOBIN 28.6 pg (25.0-35.0); MONO # 0.7 (0.1-0.6); MONO % 5.5 % (1.0-6.0); PLATELET COUNT 259 10^3/uL (120.0-450.0); RED CELL DISTRIBUTION WIDTH 15.2 % (11.5-14.5); WHITE BLOOD COUNT 13.5 10^3/ul (4.5-11.0)
[2016-12-08 07:30] LABS: ALKALINE PHOSPHATASE 61 U/L (38-133); ALT/SGPT 31 U/L (7-56); AST/SGOT 21 U/L (15-39); BILIRUBIN,TOTAL 0.4 mg/dL (0.2-1.3); BLOOD UREA NITROGEN 14 mg/dL (7-21); CALCIUM 8.8 mg/dL (8.4-10.5); CARBON DIOXIDE 24 mmol/L (21-33); CHLORIDE 108 mmol/L (95-110); GFR AFRICAN-AMERICAN > 60; GLUCOSE,RANDOM 108 mg/dL (70-110); SODIUM 140 mmol/L (132-148); TOTAL PROTEIN 7.2 g/dL (5.8-8.3)
[2016-12-08] MEDS ORDERED: Pantoprazole 40 mg EC Tab PO SCH (07:30)
[2016-12-08] MEDS: Vancomycin 1gm in NS 250ml 1 GM/250 ML BAG IVPB SCH (07:49)
[2016-12-08] MEDS: Sodium Chloride 0.9% 1,000 ML IV SCH (08:01)
[2016-12-08 08:34] VITALS: TEMP 98.5
[2016-12-08 09:41] VITALS: BP 155/65; PULSE 98
--- NOTE | 2016-12-08 09:44 | CP.PCM.DIS ---
Provider - Provider Date of Admission: 12/06/16 17:46 Attending physician: Carlitos Drake MD Primary care physician: Kirill Haddad MD Time Spent in preparation of Discharge (in minutes): 10 Hospital Course - Lab Results Lab Results: Micro Results 12/07/16 12:20 Breast - Right Gram Stain - Final Most Recent Lab Values WBC 13.5 10^3/ul (4.5-11.0) H D 12/08/16 07:00 RBC 4.27 10^6/uL (3.5-6.1) 12/08/16 07:00 Hgb 12.2 gm/dL (12.0-16.0) 12/08/16 07:00 Hct 37.0 % (36.0-48.0) 12/08/16 07:00 MCV 86.7 fL (80.0-105.0) 12/08/16 07:00 MCH 28.6 pg (25.0-35.0) 12/08/16 07:00 MCHC 33.0 g/dl (31.0-37.0) 12/08/16 07:00 RDW 15.2 % (11.5-14.5) H 12/08/16 07:00 Plt Count 259 10^3/uL (120.0-450.0) 12/08/16 07:00 MPV 10.0 fl (7.0-11.0) 12/08/16 07:00 Gran % 78.8 % (50.0-68.0) H 12/08/16 07:00 Lymph % (Auto) 15.4 % (22.0-35.0) L 12/08/16 07:00 Rincon % (Auto) 5.5 % (1.0-6.0) 12/08/16 07:00 Eos % (Auto) 0.2 % (1.5-5.0) L 12/08/16 07:00 Baso % (Auto) 0.1 % (0.0-3.0) 12/08/16 07:00 Gran # 10.67 (1.4-6.5) H 12/08/16 07:00 Lymph # 2.1 (1.2-3.4) 12/08/16 07:00 Rincon # 0.7 (0.1-0.6) H 12/08/16 07:00 Eos # 0.0 (0.0-0.7) 12/08/16 07:00 Baso # 0.01 K/mm3 (0.0-2.0) 12/08/16 07:00 PT 11.4 Seconds (9.9-11.8) 12/06/16 17:35 INR 1.06 (0.93-1.08) 12/06/16 17:35 APTT 27.2 Seconds (23.7-30.8) 12/06/16 17:35 Sodium 140 mmol/L (132-148) 12/08/16 07:00 Potassium 4.0 mmol/L (3.6-5.0) 12/08/16 07:00 Chloride 108 mmol/L (95-110) 12/08/16 07:00 Carbon Dioxide 24 mmol/L (21-33) 12/08/16 07:00 Anion Gap 12 (10-20) 12/08/16 07:00 BUN 14 mg/dL (7-21) 12/08/16 07:00 Creatinine 0.7 mg/dL (0.5-1.4) 12/08/16 07:00 Est GFR ( Amer) > 60 12/08/16 07:00 Est GFR (Non-Af Amer) > 60 12/08/16 07:00 Random Glucose 108 mg/dL (70-110) 12/08/16 07:00 Calcium 8.8 mg/dL (8.4-10.5) 12/08/16 07:00 Total Bilirubin 0.4 mg/dL (0.2-1.3) 12/08/16 07:00 AST 21 U/L (15-39) 12/08/16 07:00 ALT 31 U/L (7-56) 12/08/16 07:00 Alkaline Phosphatase 61 U/L (38-133) 12/08/16 07:00 Total Protein 7.2 g/dL (5.8-8.3) 12/08/16 07:00 Albumin 3.5 g/dL (3.0-4.8) 12/08/16 07:00 Globulin 3.7 gm/dL 12/08/16 07:00 Albumin/Globulin Ratio 1.0 (1.1-1.8) L 12/08/16 07:00 - Hospital Course Hospital Course: Pt is a 41F with PMHx significant for recurrent R breast abscesses, HTN, and congenital pulmonary valve replacement x2 who was sent to [facility] by her PMD for R breast pain/swelling. Pt admitted to foul smelling purulent drainage which was similar to other episodes in the past. Pt was admitted to the hospital, and taken to the OR for R breast debridement and partial mastectomy. She tolerated the procedure well and will be discharged home today. Pt will f/u with Dr. Drake in the office in 1-2 weeks. Discharge Exam - Head Exam Head Exam: ATRAUMATIC, NORMOCEPHALIC - Eye Exam Eye Exam: Normal appearance - ENT Exam ENT Exam: Mucous Membranes Moist - Respiratory Exam Respiratory Exam: NORMAL BREATHING PATTERN - Cardiovascular Exam Cardiovascular Exam: RRR - GI/Abdominal Exam GI & Abdominal Exam: Soft. absent: Tenderness - Extremities Exam Extremities exam: full ROM - Neurological Exam Neurological exam: Alert, Oriented x3 - Skin Skin Exam: Dry, Intact, Warm - Additional Findings Additional findings: Breast: R breast with packing s/p debridement, packing pulled out and breast covered with clean gauze dressing Discharge Plan - Follow Up Plan Condition: GOOD Disposition: HOME/ ROUTINE Instructions: Breast Abscess Drainage (DC), Acute Wound Care (DC), Chronic Wound Care (DC) Additional Instructions: f/u in office in 1-2 weeks change dressing as needed call office or return to ED if fever >100.4, pain, redness, swelling, or discharge from incision may shower but do not soak incision may take OTC pain meds do not drive while taking narcotics Referrals: Kirill Haddad MD [Primary Care Provider] - Carlitos Drake MD [Staff Provider] -
== END 2016-12-08 11:53 | disposition home or self-care (01) | DRG 584 ==
LOC: ED 16:12 → ERH 17:46 → 3RSO 20:13
PROVIDERS: ADMIT Surgery; ATTEND Surgery
PROC: 0HBT0ZZ Excision of Right Breast, Open Approach (ICD-10-PCS; principal; 2016-12-07 11:00)
DX: N61.1 Abscess of the breast and nipple (principal); L02.419 Cutaneous abscess of limb, unspecified; L73.2 Hidradenitis suppurativa; I27.2 Other secondary pulmonary hypertension; I10 Essential (primary) hypertension; I25.10 Atherosclerotic heart disease of native coronary artery without angina pectoris; Z95.2 Presence of prosthetic heart valve; Z91.14 Patient's other noncompliance with medication regimen; Z80.42 Family history of malignant neoplasm of prostate; Z80.0 Family history of malignant neoplasm of digestive organs

== ENCOUNTER 2017-04-11 20:29 | Inpatient (IN) | payer OTHER, MEDICARE ==
[2017-04-11] MEDS ORDERED: Vancomycin 1 gm/D5W 200 ml 1 GM/200 ML BAG IV STA (21:09)
[2017-04-11] MEDS ORDERED: Piperacillin/Tazobact 3.375 gm 100 ML IV STA (21:10)
--- NOTE | 2017-04-11 21:20 | ED PDOC ---
Arrival/HPI - General Chief Complaint: High Blood Pressure Time Seen by Provider: 04/11/17 20:52 Historian: Patient - History of Present Illness Narrative History of Present Illness (Text): 04/11/17 21:16 Maria Elena Perkins is a 41 year old female, whose past medical history includes hypertension, congenital pulmonary valve, hypertension, and recurrent R. breast abscess, presents to the emergency department complaining of abscess to right breast area, subjective fever, and elevated blood pressure. Patient was evaluated by PMD earlier today and was advised by PMD to present to emergency department for further treatment/admission. Denies chills, chest pain, shortness of breath, nausea, vomiting, diarrhea, urinary symptoms, or any other complaints at this time. PMD: Symptom Onset: Gradual Symptom Course: Unchanged Activities at Onset: Light Past Medical History - Provider Review Nursing Documentation Reviewed: Yes - Tetanus Immunization Tetanus Immunization: Unknown - Cardiac Hx Cardiac Disorders: Yes Hx Hypertension: Yes Other/Comment: Pulmonary valve replacement - Pulmonary Hx Respiratory Disorders: No - Neurological Hx Neurological Disorder: No - HEENT Hx HEENT Disorder: No - Renal Hx Renal Disorder: No - Endocrine/Metabolic Hx Endocrine Disorders: No - Hematological/Oncological Hx Blood Disorders: No - Integumentary Hx Dermatological Disorder: No Other/Comment: POOR HEALING OF SURGICAL WOUND. - Musculoskeletal/Rheumatological Hx Musculoskeletal Disorders: No - Gastrointestinal Hx Gastrointestinal Disorders: No - Genitourinary/Gynecological Hx Genitourinary Disorders: No - Psychiatric Hx Psychophysiologic Disorder: No Hx Substance Use: Yes (marijuana) - Surgical History Hx Section: Yes Hx Valve Replacement: Yes Other/Comment: BREAST - Anesthesia Hx Anesthesia: Yes Family/Social History - Physician Review Nursing Documentation Reviewed: Yes Family/Social History: No Known Family HX Smoking Status: Former Smoker Hx Alcohol Use: No Hx Substance Use: Yes (marijuana) Allergies/Home Meds Allergies/Adverse Reactions: Allergies dopamine Allergy (Verified 04/11/17 20:33) ITCHING Home Medications: Home Meds Medication Instructions Recorded Confirmed No Known Home Med 04/11/17 04/11/17 Review of Systems - Physician Review All systems were reviewed & negative as marked: Yes - Review of Systems Constitutional: Fevers. absent: Fatigue Respiratory: Normal. absent: SOB, Cough, Sputum Cardiovascular: Other (abscess to right breast ). absent: Chest Pain, Palpitations Gastrointestinal: Normal. absent: Abdominal Pain, Diarrhea, Nausea, Vomiting Neurological: Normal. absent: Headache, Dizziness Physical Exam Vital Signs Reviewed: Yes Vital Signs Temp Pulse Resp BP Pulse Ox 04/12/17 00:36 98.4 F 78 18 146/88 99 04/11/17 22:00 76 18 156/94 H 100 04/11/17 20:34 99.2 F 85 16 161/113 H 97 Temperature: Afebrile Blood Pressure: Hypertensive Pulse: Regular Respiratory Rate: Normal Appearance: Positive for: Well-Appearing, Non-Toxic, Comfortable Pain Distress: None Mental Status: Positive for: Alert and Oriented X 3 - Systems Exam Head: Present: Atraumatic, Normocephalic Pupils: Present: PERRL Conjunctiva: Present: Normal Mouth: Present: Moist Mucous Membranes Respiratory/Chest: Present: Clear to Auscultation, Good Air Exchange, Other ( abscess to right breast perialveolar abscess. tender and swolen. open wound with purulent discharge. b/l hidradenitis suppurativa under axilla. chaperoned by RAYMOND Zabala ). No: Respiratory Distress, Accessory Muscle Use Cardiovascular: Present: Regular Rate and Rhythm, Normal S1, S2. No: Murmurs Abdomen: Present: Normal Bowel Sounds. No: Tenderness, Distention, Peritoneal Signs Upper Extremity: Present: Normal Inspection. No: Cyanosis, Edema Lower Extremity: Present: Normal Inspection. No: Edema Neurological: Present: GCS=15, CN II-XII Intact, Speech Normal, Motor Func Grossly Intact, Normal Sensory Function Skin: Present: Warm, Dry, Normal Color. No: Rashes Psychiatric: Present: Alert, Oriented x 3, Normal Insight, Normal Concentration Medical Decision Making ED Course and Treatment: 04/11/17 21:24 Impression: A 41 year old female who presents to the emergency department complaining of abscess to right breast. Plan: -- Labs -- Vanco -- Zosyn -- Blood Culture -- Would culture -- Reassess and disposition Progress Notes: 04/12/17 00:02 Patient placed in observation at Med/Surg under Dr. Haddad's service for right breast abscess with on surgical consult. president of the [place] notified.Call placed to service. - Lab Interpretations Lab Results: 04/11/17 21:49 Lab Results 04/11/17 21:49: WBC 9.8 D, RBC 4.49, Hgb 13.0, Hct 38.4, MCV 85.5, MCH 29.0, MCHC 33.9, RDW 16.6 H, Plt Count 296, MPV 10.6 - Medication Orders Current Medication Orders: Heparin Sodium (Porcine) (Heparin) 5,000 units SC Q12 SARITA PRN Reason: Protocol Hydralazine HCl (Apresoline) 10 mg IVP Q6 PRN PRN Reason: systolic BP >160 Last Admin: 04/12/17 03:09 Dose: 10 mg Vancomycin HCl (Vancomycin 1gm) 1 gm in 250 mls @ 167 mls/hr IVPB DAILY SARITA PRN Reason: Protocol Piperacillin Sod/Tazobactam Sod (Zosyn 2.25 Gm In 0.9% 100 Ml) 2.25 gm in 100 mls @ 100 mls/hr IVPB Q6 SARITA PRN Reason: Protocol Stop: 04/12/17 12:59 Ibuprofen (Motrin Tab) 600 mg PO Q6H PRN PRN Reason: Pain, moderate (4-7) Lisinopril (Zestril) 10 mg PO DAILY [facility] Ondansetron HCl (Zofran Inj) 4 mg IVP Q4H PRN PRN Reason: Nausea/Vomiting Pantoprazole Sodium (Protonix Ec Tab) 40 mg PO 0600 SARITA Discontinued Medications Vancomycin HCl/Dextrose (Vancocin) 1 gm in 200 mls @ 133.333 mls/hr IV STAT STA PRN Reason: Protocol Stop: 04/11/17 22:38 Last Admin: 04/11/17 21:57 Dose: Piperacillin Sod/Tazobactam Sod (Zosyn 3.375 In Ns 100ml) 100 mls @ 200 mls/hr IV STAT STA PRN Reason: Protocol Stop: 04/11/17 21:39 Last Admin: 04/11/17 21:56 Dose: 200 mls/hr Vancomycin HCl (Vancomycin 1gm) 1 gm in 250 mls @ 133.333 mls/hr IVPB STAT STA PRN Reason: Protocol Stop: 04/11/17 23:31 Last Admin: 04/11/17 21:56 Dose: 133.333 mls/hr Oxycodone/Acetaminophen (Percocet 5/325 Mg Tab) 1 tab PO STAT STA Stop: 04/11/17 22:48 Last Admin: 04/11/17 23:32 Dose: 1 tab - Scribe Statement The provider has reviewed the documentation as recorded by the Agnes Gould Provider Attestation: Provider Maryibe Attestation: All medical record entries made by the Maryibbreanna were at my direction and personally dictated by me. I have reviewed the chart and agree that the record accurately reflects my personal performance of the history, physical exam, medical decision making, and the department course for this patient. I have also personally directed, reviewed, and agree with the discharge instructions and disposition. Disposition/Present on Arrival - Present on Arrival Any Indicators Present on Arrival: No History of DVT/PE: No History of Uncontrolled Diabetes: No Urinary Catheter: No History of Decub. Ulcer: No History Surgical Site Infection Following: CABG - Mediastinitis - Disposition Have Diagnosis and Disposition been Completed?: Yes Diagnosis: Breast abscess, Cellulitis Disposition: HOSPITALIZED Disposition Time: 00:01 Patient Plan: Observation Patient Problems: Current Active Problems Problem Status Onset Breast abscess Acute Cellulitis Acute Condition: STABLE
[2017-04-11] MEDS ORDERED: Vancomycin 1gm in NS 250ml 1 GM/250 ML BAG IVPB STA (21:39)
[2017-04-11 22:01] LABS: HEMATOCRIT 38.4 % (36.0-48.0); MEAN CELL VOLUME 85.5 fl (80.0-105.0); MEAN CORPUSCULAR HGB CONC 33.9 g/dl (31.0-37.0); MEAN PLATELET VOLUME 10.6 fl (7.0-11.0); RED CELL DISTRIBUTION WIDTH 16.6 % (11.5-14.5); WHITE BLOOD COUNT 9.8 10^3/ul (4.5-11.0)
[2017-04-11] MEDS ORDERED: Oxycodone/Acetaminophen 5/325 mg Tab PO STA (22:47)
--- NOTE | 2017-04-12 00:14 | CP.PCM.HP ---
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 Pt states she went to see Dr. Haddad in his office and was told to come to the hospital due to her elevated blood pressure. The patient mentions she ran out of her medication weeks ago and has not gotten them refilled. The patient also mentions having recurrent drainage from her right breast. Patient had right breast abscess surgery by Dr. Drake 6 months ago. Pt states that every month while menstruating, she has enlargement of the breast and has discharge. Discharge is thick and white, while being foul in odor. For breast pain, she takes Ibuprofen. She states she follow up with Dr. Drake, but has not recently due to the of her mother. Pt also was told she has hidradentitis suppurativa of her b/l axilla and is complaining of tenderness to palpation of both areas. Denies CP, SOB, N/V/D, fever, chills, dizziness, runny nose, syncope , numbness, tingling, dysuria, palpitations. PMH: HTN, pulmonic valve replacement x2, recurrent right breast abscess, hidradentitis suppurativa PSH: I&D of right breast abscess x2, BL axilla I&D (multiple), open cardiac valve replacement x2, FMH: Prostate and Colon cancer Social Hx: Denies alcohol, tobacco or illicit drug use. Allergy: Dopamine Medications: Reviewed, as per MAR. Currently not taking any medication Present on Admission - Present on Admission Any Indicators Present on Admission: No Review of Systems - Review of Systems Review of Systems: 12 point ROS as per HPI, otherwise negative Past Patient History - Tetanus Immunizations Tetanus Immunization: Unknown - Past Social History Smoking Status: Former Smoker - CARDIAC Hx Cardiac Disorders: Yes Hx Hypertension: Yes Other/Comment: Pulmonary valve replacement - PULMONARY Hx Respiratory Disorders: No - NEUROLOGICAL Hx Neurological Disorder: No - HEENT Hx HEENT Problems: No - RENAL Hx Chronic Kidney Disease: No - ENDOCRINE/METABOLIC Hx Endocrine Disorders: No - HEMATOLOGICAL/ONCOLOGICAL Hx Blood Disorders: No - INTEGUMENTARY Hx Dermatological Problems: No Other/Comment: POOR HEALING OF SURGICAL WOUND. - MUSCULOSKELETAL/RHEUMATOLOGICAL Hx Musculoskeletal Disorders: No - GASTROINTESTINAL Hx Gastrointestinal Disorders: No - GENITOURINARY/GYNECOLOGICAL Hx Genitourinary Disorders: No - PSYCHIATRIC Hx Psychophysiologic Disorder: No Hx Substance Use: Yes (marijuana) - SURGICAL HISTORY Hx Section: Yes Hx Valve Replacement: Yes Other/Comment: BREAST - ANESTHESIA Hx Anesthesia: Yes Meds Allergies/Adverse Reactions: Allergies Allergy/AdvReac Type Severity Reaction Status Date / Time dopamine Allergy ITCHING Verified 04/11/17 20:33 Physical Exam - Constitutional Appears: Non-toxic, No Acute Distress - Head Exam Head Exam: ATRAUMATIC, NORMAL INSPECTION, NORMOCEPHALIC - Eye Exam Eye Exam: EOMI, Normal appearance - ENT Exam ENT Exam: Mucous Membranes Moist, Normal Exam - Neck Exam Neck exam: Positive for: Normal Inspection. Negative for: Lymphadenopathy - Respiratory Exam Respiratory Exam: Clear to Auscultation Bilateral, NORMAL BREATHING PATTERN. absent: Rales, Rhonchi, Wheezes - Cardiovascular Exam Cardiovascular Exam: RRR, +S1, +S2 - GI/Abdominal Exam GI & Abdominal Exam: Normal Bowel Sounds, Soft. absent: Tenderness - Extremities Exam Extremities exam: Negative for: calf tenderness, pedal edema - Neurological Exam Neurological exam: Alert, CN II-XII Intact, Oriented x3 - Psychiatric Exam Psychiatric exam: Normal Affect, Normal Mood - Skin Additional comments: Right breast wound, not draining. Right breast with firm nodule noted at the 12 o'clock position. 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 Patient will be admitted to the floor for empiric antibiotics and BP management. Surgery will be consulted. 1. Hypertensive Urgency Lisinopril 10 mg daily started Hydralazine PRN for SBP > 160 Lipid panel HgA1c, Phos, and Mg will be checked 2. Breast abscess Will obtain Breast US Procal ordered Continue Vancomycin and Zosyn Ibuprofen for pain Surgery consulted, Dr. Drake 3. PPX Protonix Zofran Heparin Luis Alberto, PGY-2
[2017-04-12 01:25] LABS: ALB/GLOB RATIO 1.1 (1.1-1.8); ALKALINE PHOSPHATASE 65 U/L (38-126); ALT/SGPT 26 U/L (7-56); AST/SGOT 20 U/L (14-36); BILIRUBIN,TOTAL 0.3 mg/dL (0.2-1.3); BLOOD UREA NITROGEN 11 mg/dL (7-21); CARBON DIOXIDE 24 mmol/L (21-33); CHLORIDE 109 mmol/L (98-107); CHOLESTEROL 135 mg/dL (130-200); GFR AFRICAN-AMERICAN > 60; GLUCOSE,RANDOM 88 mg/dL (70-110); PHOSPHOROUS 3.4 mg/dL (2.5-4.5); SODIUM 139 mmol/L (132-148); TOTAL PROTEIN 7.2 g/dL (5.8-8.3)
[2017-04-12 03:08] VITALS: BMI 26.4
[2017-04-12] MEDS: Pantoprazole 40 mg EC Tab PO SCH (05:55)
[2017-04-12] MEDS ORDERED: Piperacillin/Tazobact 2.25gm 2.25 GM/100 ML BAG IVPB SCH (06:00)
--- NOTE | 2017-04-12 08:22 | CP.PCM.CON ---
<Parish Bashir - Last Filed: 04/12/17 08:05> History of Present Illness - History of Present Illness History of Present Illness: General Surgery Consult Re: R breast abscess HPI: 41F, well known to surgical service, sent to the ED by her PMD with elevated blood pressure and right breast drainage. Pt went to Dr. Haddad and was sent to the hospital due to her elevated blood pressure. Had not had her meds for several weeks. Pt mentions having recurrent drainage from her right breast a week prior to her menstruation. Had R partial mastectomy by Dr. Drake 6 months ago. Discharge is thick, frazier-white, and malodorous. She states she follow up with Dr. Drake, but has not recently due to the of her mother. Pt also has hidradentitis suppurativa of her b/l axilla and is complaining of TTP of the R side. No F/C, SOB, N/V/D. PMH: HTN, congenital heart defect, recurrent right breast abscess, hidradentitis suppurativa PSH: I&D of right breast abscess x2, B/L axilla I&D (multiple), open pulmonic valve replacement x2, , R partial mastectomy SH: Denies alcohol, tobacco or illicit drug use. All: Dopamine Meds: See MAR. Ran out of medications at home Review of Systems - Review of Systems All systems: reviewed and no additional remarkable complaints except (as per HPI ) Past Patient History - Tetanus Immunizations Tetanus Immunization: Unknown - Past Social History Smoking Status: Former Smoker - CARDIAC Hx Cardiac Disorders: Yes Hx Hypertension: Yes Other/Comment: Pulmonary valve replacement - PULMONARY Hx Respiratory Disorders: No - NEUROLOGICAL Hx Neurological Disorder: No - HEENT Hx HEENT Problems: No - RENAL Hx Chronic Kidney Disease: No - ENDOCRINE/METABOLIC Hx Endocrine Disorders: No - HEMATOLOGICAL/ONCOLOGICAL Hx Blood Disorders: No - INTEGUMENTARY Hx Dermatological Problems: No Other/Comment: POOR HEALING OF SURGICAL WOUND. - MUSCULOSKELETAL/RHEUMATOLOGICAL Hx Musculoskeletal Disorders: No - GASTROINTESTINAL Hx Gastrointestinal Disorders: No - GENITOURINARY/GYNECOLOGICAL Hx Genitourinary Disorders: No - PSYCHIATRIC Hx Psychophysiologic Disorder: No Hx Substance Use: Yes (marijuana) - SURGICAL HISTORY Hx Section: Yes Hx Valve Replacement: Yes Other/Comment: BREAST - ANESTHESIA Hx Anesthesia: Yes Meds Allergies/Adverse Reactions: Allergies Allergy/AdvReac Type Severity Reaction Status Date / Time dopamine Allergy ITCHING Verified 04/11/17 20:33 - Medications Medications: Current Medications Heparin Sodium (Porcine) (Heparin) 5,000 units SC Q12 SARITA PRN Reason: Protocol Hydralazine HCl (Apresoline) 10 mg IVP Q6 PRN PRN Reason: systolic BP >160 Last Admin: 04/12/17 03:09 Dose: 10 mg Vancomycin HCl (Vancomycin 1gm) 1 gm in 250 mls @ 167 mls/hr IVPB DAILY SARITA PRN Reason: Protocol Piperacillin Sod/Tazobactam Sod (Zosyn 2.25 Gm In 0.9% 100 Ml) 2.25 gm in 100 mls @ 100 mls/hr IVPB Q6 SARITA PRN Reason: Protocol Stop: 04/12/17 12:59 Last Admin: 04/12/17 05:55 Dose: 100 mls/hr Ibuprofen (Motrin Tab) 600 mg PO Q6H PRN PRN Reason: Pain, moderate (4-7) Lisinopril (Zestril) 10 mg PO DAILY [facility] Ondansetron HCl (Zofran Inj) 4 mg IVP Q4H PRN PRN Reason: Nausea/Vomiting Pantoprazole Sodium (Protonix Ec Tab) 40 mg PO 0600 [facility] Last Admin: 04/12/17 05:55 Dose: 40 mg Physical Exam - Constitutional Appears: Non-toxic, No Acute Distress - Head Exam Head Exam: ATRAUMATIC, NORMOCEPHALIC - Eye Exam Eye Exam: EOMI. absent: Scleral icterus - ENT Exam ENT Exam: Mucous Membranes Moist Additional comments: trachea midline - Respiratory Exam Respiratory Exam: NORMAL BREATHING PATTERN. absent: Respiratory Distress - Cardiovascular Exam Cardiovascular Exam: RRR, +S1, +S2 - GI/Abdominal Exam GI & Abdominal Exam: Soft. absent: Distended, Tenderness - Rectal Exam Rectal Exam: Deferred - Extremities Exam Extremities exam: Negative for: calf tenderness, pedal edema - Back Exam Back exam: absent: CVA tenderness (L), CVA tenderness (R) - Neurological Exam Neurological exam: Alert, Oriented x3 - Skin Skin Exam: Dry, Warm Additional comments: R axilla with mild TTP over a small hard bump R superior border of areola has scaring and an opening with thick frazier drainage on expression,nipple is slightly retracted from scarring Results - Vital Signs Recent Vital Signs: Last Vital Signs Temp 98.6 F 04/12/17 08:00 Pulse 67 04/12/17 08:00 Resp 20 04/12/17 08:00 BP 121/79 04/12/17 08:00 Pulse Ox 97 04/12/17 08:00 - Labs Result Diagrams: 04/11/17 21:49 04/12/17 00:50 Labs: Laboratory Results - last 24 hr 04/12/17 00:50 Sodium 139 Potassium 4.0 Chloride 109 H Carbon Dioxide 24 Anion Gap 10 BUN 11 Creatinine 0.7 Est GFR ( Amer) > 60 Est GFR (Non-Af Amer) > 60 Random Glucose 88 Calcium 9.0 Phosphorus 3.4 Magnesium 2.0 Total Bilirubin 0.3 AST 20 ALT 26 Alkaline Phosphatase 65 Total Protein 7.2 Albumin 3.9 Globulin 3.4 Albumin/Globulin Ratio 1.1 Triglycerides 146 Cholesterol 135 LDL Cholesterol Direct 70 HDL Cholesterol 39 Assessment & Plan - Assessment and Plan (Free Text) Assessment: 41F with drainage from R breast Plan: Follow up breast US IV Abx Control HTN Will D/W Dr. Vidal Bashir PGY4 <Carlitos Drake - Last Filed: 04/12/17 10:01> Meds - Medications Medications: Current Medications Heparin Sodium (Porcine) (Heparin) 5,000 units SC Q12 SARITA PRN Reason: Protocol Hydralazine HCl (Apresoline) 10 mg IVP Q6 PRN PRN Reason: systolic BP >160 Last Admin: 04/12/17 03:09 Dose: 10 mg Vancomycin HCl (Vancomycin 1gm) 1 gm in 250 mls @ 167 mls/hr IVPB DAILY SARITA PRN Reason: Protocol Piperacillin Sod/Tazobactam Sod (Zosyn 2.25 Gm In 0.9% 100 Ml) 2.25 gm in 100 mls @ 100 mls/hr IVPB Q6 SARITA PRN Reason: Protocol Stop: 04/12/17 12:59 Last Admin: 04/12/17 05:55 Dose: 100 mls/hr Ibuprofen (Motrin Tab) 600 mg PO Q6H PRN PRN Reason: Pain, moderate (4-7) Lisinopril (Zestril) 10 mg PO DAILY [facility] Ondansetron HCl (Zofran Inj) 4 mg IVP Q4H PRN PRN Reason: Nausea/Vomiting Pantoprazole Sodium (Protonix Ec Tab) 40 mg PO 0600 SARITA Last Admin: 04/12/17 05:55 Dose: 40 mg Results - Vital Signs Recent Vital Signs: Last Vital Signs Temp 98.6 F 04/12/17 08:00 Pulse 67 04/12/17 08:00 Resp 20 04/12/17 08:00 BP 121/79 04/12/17 08:00 Pulse Ox 97 04/12/17 08:00 - Labs Result Diagrams: 04/12/17 09:00 04/12/17 09:00 Labs: Laboratory Results - last 24 hr 04/12/17 04/12/17 04/12/17 00:50 09:00 09:00 WBC 7.8 D RBC 4.81 Hgb 14.0 Hct 41.4 MCV 86.1 MCH 29.1 MCHC 33.8 RDW 15.3 H Plt Count 255 MPV 9.9 Sodium 139 143 Potassium 4.0 4.1 Chloride 109 H 110 H Carbon Dioxide 24 25 Anion Gap 10 12 BUN 11 8 Creatinine 0.7 0.7 Est GFR ( Amer) > 60 > 60 Est GFR (Non-Af Amer) > 60 > 60 Random Glucose 88 82 Calcium 9.0 9.3 Phosphorus 3.4 Magnesium 2.0 Total Bilirubin 0.3 0.5 AST 20 21 ALT 26 25 Alkaline Phosphatase 65 68 Total Protein 7.2 7.7 Albumin 3.9 3.8 Globulin 3.4 3.9 Albumin/Globulin Ratio 1.1 1.0 L Triglycerides 146 Cholesterol 135 LDL Cholesterol Direct 70 HDL Cholesterol 39 Assessment & Plan - Assessment and Plan (Free Text) Plan: Dx Recurrent Right breast abscess/axillary hidradenitis Severe HTCAD-non compliant Rx recently Depression(Mothers ) Ayo Breast Ultrasound now C/S Breast drainage IV AB Topical axillary Bactroban This consultatiopn done under my direct supervision Doroteo Drake MD FACS
[2017-04-12 09:22] LABS: HEMATOCRIT 41.4 % (36.0-48.0); MEAN CELL VOLUME 86.1 fl (80.0-105.0); MEAN CORPUSCULAR HEMOGLOBIN 29.1 pg (25.0-35.0); MEAN CORPUSCULAR HGB CONC 33.8 g/dl (31.0-37.0); MEAN PLATELET VOLUME 9.9 fl (7.0-11.0); RED CELL DISTRIBUTION WIDTH 15.3 % (11.5-14.5); WHITE BLOOD COUNT 7.8 10^3/ul (4.5-11.0)
[2017-04-12 09:31] LABS: ALKALINE PHOSPHATASE 68 U/L (38-126); ALT/SGPT 25 U/L (7-56); AST/SGOT 21 U/L (14-36); BILIRUBIN,TOTAL 0.5 mg/dL (0.2-1.3); BLOOD UREA NITROGEN 8 mg/dL (7-21); CALCIUM 9.3 mg/dL (8.4-10.5); CARBON DIOXIDE 25 mmol/L (21-33); CHLORIDE 110 mmol/L (98-107); GFR AFRICAN-AMERICAN > 60; GLUCOSE,RANDOM 82 mg/dL (70-110); POTASSIUM 4.1 mmol/L (3.6-5.0); SODIUM 143 mmol/L (132-148); TOTAL PROTEIN 7.7 g/dL (5.8-8.3)
[2017-04-12] MEDS: Vancomycin 1gm in NS 250ml 1 GM/250 ML BAG IVPB SCH (10:14)
--- NOTE | 2017-04-12 16:06 | US ---
PROCEDURE: Right breast ultrasound examination HISTORY: breast abscess COMPARISON: 10/07/2016 TECHNIQUE: Ultrasound examination was performed throughout the right breast and axilla FINDINGS: There is a simple cyst in the 9 o'clock axis of the right breast, 4 cm from the nipple, measuring 5 x 6 x 7 mm. This is unchanged from prior ultrasound examination. No other solid or cystic mass is identified elsewhere throughout the right breast. There is no abscess identified. In the right axilla there is a hypoechoic mass with central vessel measuring 1.6 x 1.7 x 1.9 cm. Ill-defined thin central echogenicity is noted. This may represent a lymph node with atypical features, possibly due to the patient's known cellulitis. Followup is advised with ultrasound examination. IMPRESSION: No breast abscess identified. 1.9 cm right axillary mass, possibly an atypical lymph node. Followup with axillary ultrasound examination is advised.
[2017-04-12] MEDS: Meropenem 1g/NS 100mL IVPB 1 GM/100 ML PIGGYBACK IVPB SCH ×2 (17:05→21:18)
--- NOTE | 2017-04-12 20:36 | CON ---
DATE: 04/12/2017 LOCATION: The patient is in room 571, bed 2. CHIEF COMPLAINT: Right breast discharge times several days. HISTORY OF PRESENT ILLNESS: This is a 41-year-old female with hypertension, congenital pulmonary valve and hidrandenitis suppurativa. Patient had a mammogram, which resulted in an aspiration in [facility] years ago. Two days after that, patient required a pulmonic valve replacement. She already had a pulmonic valve change as a trial. She has congenital pulmonic valve disease. This was the second pulmonic valve replacement in [facility]. She states that a short time after that, patient continued to have a discharge from the right breast and has continued having on and off wound opening and draining, chronic in nature. No fevers, no chills, no chest pain. PAST MEDICAL HISTORY: Significant for hypertension, congenital pulmonic valve disease and chronic right breast discharge and anxiety. PAST SURGICAL HISTORY: Significant for pulmonic valve replacement with a pigtail valve as a trial and a second pulmonic valve replacement a few years ago at [facility]. The patient also had a . ALLERGIES: THE PATIENT IS ALLERGIC TO DOPAMINE. MEDICATIONS AT HOME: Include Benicar. PHYSICAL EXAMINATION: GENERAL: The patient is in bed. VITAL SIGNS: Temperature of 98, blood pressure is 160/100, respiratory rate of 20 and blood pressure is 140/80. HEENT: Unremarkable. NECK: Supple. LUNGS: Decreased breath sounds. HEART: Normal S1 and S2. ABDOMEN: Soft. BREASTS: Examination of right breast reveals a purulent discharge and it is tender. There is an open wound, mild erythema. Examination of right axilla reveals purulent material from a lymph node that is draining. LABORATORY DATA: Reveals a white count of 7.8, hemoglobin of 14. BUN of 11, creatinine of 0.7. Consultation by Dr. Carlitos Drake is reviewed, history and physical examination ASSESSMENT AND PLAN: This is a 41-year-old female with hidradenitis suppurativa , congenital pulmonic valve disease requiring change, valve replacement as a child, needed another second valve replacement a few years ago at [facility], also had a breast aspiration from routine mammogram findings and subsequently she has had chronic discharge. She had an incision and drainage by Dr. Carlitos Drake some time ago and continues to have discharge, now it has gotten worse and with right breast cellulitis. Currently, the acute problem is the cellulitis, but the underlying recurrent discharge and open wound is not explained once the infection is under control, currently on vancomycin and Zosyn. We will treat with vancomycin and meropenem. We will eventually need deep tissue biopsy of the breast tissue. Wound send for acid-fast bacilli smear and cultures and fungal smear and cultures. Rare occasion, pyoderma gangrenosum may present like this. Would also send pathology in addition to routine Gram stain and routine pathology. We will order a sedimentation rate and C-reactive protein and vasculitis workup in addition to human immunodeficiency virus testing because of her age. We will follow up closely with you. Again, she will need a deep tissue biopsy with routine Gram stain, fungal stain, tuberculosis in addition to pathology, pyoderma gangrenosum in the differential diagnosis. We will follow with you. We will also check on the wound culture. May need a axillary lymph node biopsy also. Matthew Jessica MD MTDAnn
[2017-04-13] MEDS: Meropenem 1g/NS 100mL IVPB 1 GM/100 ML PIGGYBACK IVPB SCH ×2 (05:45→13:14)
[2017-04-13] MEDS: Pantoprazole 40 mg EC Tab PO SCH (05:45)
[2017-04-13 07:47] LABS: BASO # 0.02 K/mm3 (0.0-2.0); BASO % 0.2 % (0.0-3.0); EOS # 0.1 (0.0-0.7); EOS % 1.5 % (1.5-5.0); GRAN # 6.01 (1.4-6.5); GRAN % 66.4 % (50.0-68.0); HEMATOCRIT 44.1 % (36.0-48.0); LYMPH # 2.3 (1.2-3.4); LYMPH % 25.6 % (22.0-35.0); MEAN CORPUSCULAR HEMOGLOBIN 28.9 pg (25.0-35.0); MEAN PLATELET VOLUME 9.8 fl (7.0-11.0); MONO # 0.6 (0.1-0.6); MONO % 6.3 % (1.0-6.0); RED CELL DISTRIBUTION WIDTH 15.3 % (11.5-14.5); WHITE BLOOD COUNT 9.1 10^3/ul (4.5-11.0)
[2017-04-13 08:07] LABS: ALB/GLOB RATIO 1.1 (1.1-1.8); ALKALINE PHOSPHATASE 72 U/L (38-126); ALT/SGPT 25 U/L (7-56); AST/SGOT 23 U/L (14-36); BILIRUBIN,TOTAL 0.5 mg/dL (0.2-1.3); BLOOD UREA NITROGEN 11 mg/dL (7-21); CALCIUM 9.7 mg/dL (8.4-10.5); CARBON DIOXIDE 22 mmol/L (21-33); CHLORIDE 110 mmol/L (98-107); GFR AFRICAN-AMERICAN > 60; GLUCOSE,RANDOM 86 mg/dL (70-110); POTASSIUM 4.3 mmol/L (3.6-5.0); SODIUM 142 mmol/L (132-148); TOTAL PROTEIN 8.1 g/dL (5.8-8.3)
--- NOTE | 2017-04-13 08:52 | CP.PCM.PN ---
<JungKaci - Last Filed: 04/13/17 08:55> Subjective - Date & Time of Evaluation Date of Evaluation: 04/13/17 Time of Evaluation: 08:56 - Subjective Subjective: General Surgery Progress Note PT S&E At bedside. NAEON. Patient feels ready to go home. Patient was explained the ultrasound results. Patient denies F/C, N/V, CP, SOB. Patient is tolerating pain well. Objective - Vital Signs/Intake and Output Vital Signs (last 24 hours): Temp Pulse Resp BP Pulse Ox 98.2 F 83 20 140/83 97 04/13/17 07:30 04/13/17 07:30 04/13/17 07:30 04/13/17 07:30 04/13/17 07:30 Intake and Output: 04/13/17 04/13/17 06:59 18:59 Intake Total 360 Balance 360 - Medications Medications: Current Medications Heparin Sodium (Porcine) (Heparin) 5,000 units SC Q12 [facility] PRN Reason: Protocol Last Admin: 04/13/17 05:44 Dose: Not Given Hydralazine HCl (Apresoline) 10 mg IVP Q6 PRN PRN Reason: systolic BP >160 Last Admin: 04/13/17 06:03 Dose: 10 mg Vancomycin HCl (Vancomycin 1gm) 1 gm in 250 mls @ 167 mls/hr IVPB DAILY [facility] PRN Reason: Protocol Last Admin: 04/12/17 10:14 Dose: 167 mls/hr Meropenem 1g/NS 100mL IVPB (Meropenem 1g/Ns 100ml Ivpb) 1 gm in 100 mls @ 100 mls/hr IVPB Q8 [facility] PRN Reason: Protocol Stop: 04/21/17 14:01 Last Admin: 04/13/17 05:45 Dose: 100 mls/hr Ibuprofen (Motrin Tab) 600 mg PO Q6H PRN PRN Reason: Pain, moderate (4-7) Lisinopril (Zestril) 10 mg PO DAILY [facility] Last Admin: 04/12/17 11:33 Dose: 10 mg Mupirocin (Bactroban Ointment) 0 gm TOP BID [facility] Last Admin: 04/12/17 17:13 Dose: 1 applic Ondansetron HCl (Zofran Inj) 4 mg IVP Q4H PRN PRN Reason: Nausea/Vomiting Pantoprazole Sodium (Protonix Ec Tab) 40 mg PO 0600 [facility] Last Admin: 04/13/17 05:45 Dose: 40 mg - Labs Labs: 04/13/17 07:40 04/13/17 07:40 - Constitutional Appears: Non-toxic - Head Exam Head Exam: NORMAL INSPECTION - Eye Exam Eye Exam: EOMI, Normal appearance - ENT Exam ENT Exam: Mucous Membranes Moist - Neck Exam Neck Exam: Full ROM - Respiratory Exam Respiratory Exam: NORMAL BREATHING PATTERN. absent: Accessory Muscle Use, Respiratory Distress - Cardiovascular Exam Cardiovascular Exam: REGULAR RHYTHM. absent: Bradycardia, Tachycardia - GI/Abdominal Exam GI & Abdominal Exam: Soft, Normal Bowel Sounds. absent: Rigid, Tenderness, Rebound - Psychiatric Exam Psychiatric exam: Normal Affect, Normal Mood - Skin Skin Exam: Dry, Normal Color, Warm Additional comments: R axilla with mild TTP over a small hard bump R superior border of right areola has scaring with thick frazier drainage on expression nipple has slight retraction from scarring Assessment and Plan - Assessment and Plan (Free Text) Assessment: 41F with drainage from R breast Plan: breast US results: no signs of abscess, possible atypical lymph node IV Abx f/u cultures Control HTN no surgical intervention at this time. patient is hemodynamically stable. vitals stable. patient is clear to go home if cleared by primary team. d/w Dr. Vidal Feng, PGY1 <Carlitos Drake - Last Filed: 04/14/17 12:29> Objective - Vital Signs/Intake and Output Vital Signs (last 24 hours): Temp Pulse Resp BP Pulse Ox 98.5 F 79 18 184/117 H 97 04/14/17 08:18 04/14/17 10:45 04/14/17 08:18 04/14/17 10:45 04/14/17 08:18 - Medications Medications: Current Medications Acetaminophen (Tylenol 325mg Tab) 650 mg PO Q6H PRN PRN Reason: Headache Bromocriptine Mesylate (Parlodel) 2.5 mg PO DAILY [facility] Diphenhydramine HCl (Benadryl) 25 mg PO HS [facility] Last Admin: 04/13/17 21:26 Dose: 25 mg Heparin Sodium (Porcine) (Heparin) 5,000 units SC Q12 [facility] PRN Reason: Protocol Last Admin: 04/14/17 10:44 Dose: 5,000 units Vancomycin HCl (Vancomycin 1gm) 1 gm in 250 mls @ 167 mls/hr IVPB DAILY [facility] PRN Reason: Protocol Last Admin: 04/13/17 10:34 Dose: 167 mls/hr Piperacillin Sod/Tazobactam Sod (Zosyn 3.375 In Ns 100ml) 100 mls @ 200 mls/hr IVPB Q6 [facility] PRN Reason: Protocol Stop: 04/21/17 00:01 Last Admin: 04/14/17 07:34 Dose: Not Given Sodium Chloride (Sodium Chloride 0.9%) 1,000 mls @ 100 mls/hr IV .Q10H [facility] Ibuprofen (Motrin Tab) 600 mg PO Q6H PRN PRN Reason: Pain, moderate (4-7) Last Admin: 04/13/17 15:18 Dose: 600 mg Lisinopril (Zestril) 10 mg PO DAILY [facility] Last Admin: 04/14/17 10:45 Dose: 10 mg Mupirocin (Bactroban Ointment) 0 gm TOP BID [facility] Last Admin: 04/14/17 10:43 Dose: 1 applic Ondansetron HCl (Zofran Inj) 4 mg IVP Q4H PRN PRN Reason: Nausea/Vomiting Pantoprazole Sodium (Protonix Ec Tab) 40 mg PO 0600 [facility] Last Admin: 04/14/17 06:18 Dose: 40 mg - Labs Labs: PT 11.2 Seconds (9.9-11.8) 04/13/17 15:35 INR 1.04 (0.93-1.08) 04/13/17 15:35 APTT 28.9 Seconds (23.7-30.8) 04/13/17 15:35 Assessment and Plan - Assessment and Plan (Free Text) Assessment: DX ? hORMONAL DUCTAL SECRETION JEREMY MENSTRUAL Hold Bromocriptine for migraine IVANNA Drake MD FACS
[2017-04-13] MEDS: Vancomycin 1gm in NS 250ml 1 GM/250 ML BAG IVPB SCH (10:34)
--- NOTE | 2017-04-13 11:34 | CP.PCM.PCO ---
Physician Communication Note - Physician Communication Note Physician Communication Note: c/s pending/?bromocriptine or danazol rx/Postpone axillary excision now
--- NOTE | 2017-04-13 13:50 | US ---
PROCEDURE: HISTORY: Evaluation for bilateral axillary lymph nodes - possibly atypical right axillary lymph node as per breast ultrasound recent exam. This additional history on that prior right breast ultrasound exam of a breast abscess. No abscess was seen or reported on the prior right breast ultrasound images COMPARISON: 10/07/2016 mammogram and right breast ultrasound images 04/12/2017 TECHNIQUE: Ultrasound scanning each axilla was performed with color Doppler FINDINGS: Right axilla: There is 1 right axillary lymph node visualized measuring 1.7 x 1.7 x 1.7 cm that is abnormal in appearance its cortex is abnormally thickened measuring up to 7 mm. It is echogenic fatty hilum is thinner than normally seen. Although these findings may relate to a prior right breast abscess, other lesions including neoplasia for an abnormal right axillary lymph node are considerations. Left axillary lymph nodes are normal in appearance IMPRESSION: Abnormal appearing right axillary lymph node. The clinical history is noted. Currently no right breast ultrasound abscess was reported or noted. Although hyperplastic benign changes in a right axillary lymph node or possible, other etiologies including neoplasm and malignancy are not excluded. Consider right axillary lymph node fine-needle aspiration/biopsy . BIRADS -4 suspicious .
--- NOTE | 2017-04-13 14:33 | CP.PCM.PN ---
Subjective - Date & Time of Evaluation Date of Evaluation: 04/13/17 Time of Evaluation: 11:45 - Subjective Subjective: Patient seen and examined at bedside. No acute events overnight. States breast pain and discharge have not changed since being admitted. Currently denies f/c/ cp/sob/abdominal pain/n/v. Objective - Vital Signs/Intake and Output Vital Signs (last 24 hours): Temp Pulse Resp BP Pulse Ox 98.2 F 97 H 20 180/90 H 97 04/13/17 07:30 04/13/17 13:12 04/13/17 07:30 04/13/17 13:12 04/13/17 07:30 Intake and Output: 04/13/17 04/13/17 06:59 18:59 Intake Total 360 Balance 360 - Medications Medications: Current Medications Heparin Sodium (Porcine) (Heparin) 5,000 units SC Q12 [facility] PRN Reason: Protocol Last Admin: 04/13/17 10:37 Dose: Not Given Hydralazine HCl (Apresoline) 10 mg IVP Q6 PRN PRN Reason: systolic BP >160 Last Admin: 04/13/17 13:12 Dose: 10 mg Vancomycin HCl (Vancomycin 1gm) 1 gm in 250 mls @ 167 mls/hr IVPB DAILY [facility] PRN Reason: Protocol Last Admin: 04/13/17 10:34 Dose: 167 mls/hr Meropenem 1g/NS 100mL IVPB (Meropenem 1g/Ns 100ml Ivpb) 1 gm in 100 mls @ 100 mls/hr IVPB Q8 [facility] PRN Reason: Protocol Stop: 04/21/17 14:01 Last Admin: 04/13/17 13:14 Dose: 100 mls/hr Ibuprofen (Motrin Tab) 600 mg PO Q6H PRN PRN Reason: Pain, moderate (4-7) Lisinopril (Zestril) 10 mg PO DAILY [facility] Last Admin: 04/13/17 10:35 Dose: 10 mg Mupirocin (Bactroban Ointment) 0 gm TOP BID [facility] Last Admin: 04/13/17 10:36 Dose: 1 applic Ondansetron HCl (Zofran Inj) 4 mg IVP Q4H PRN PRN Reason: Nausea/Vomiting Pantoprazole Sodium (Protonix Ec Tab) 40 mg PO 0600 [facility] Last Admin: 04/13/17 05:45 Dose: 40 mg - Labs Labs: 04/13/17 07:40 04/13/17 07:40 - Additional Findings Additional findings: - Constitutional Appears: Non-toxic, No Acute Distress - Head Exam Head Exam: ATRAUMATIC, NORMAL INSPECTION, NORMOCEPHALIC - Eye Exam Eye Exam: EOMI, Normal appearance - ENT Exam ENT Exam: Mucous Membranes Moist, Normal Exam - Neck Exam Neck exam: Positive for: Normal Inspection. Negative for: Lymphadenopathy - Respiratory Exam Respiratory Exam: Clear to Auscultation Bilateral, NORMAL BREATHING PATTERN. absent: Rales, Rhonchi, Wheezes - Cardiovascular Exam Cardiovascular Exam: RRR, +S1, +S2 - GI/Abdominal Exam GI & Abdominal Exam: Normal Bowel Sounds, Soft. absent: Tenderness - Extremities Exam Extremities exam: Negative for: calf tenderness, pedal edema - Neurological Exam Neurological exam: Alert, CN II-XII Intact, Oriented x3 - Psychiatric Exam Psychiatric exam: Normal Affect, Normal Mood - Skin Additional comments: Right breast wound, not draining. Right breast with firm nodule noted at the 12 o'clock position. 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 Hypertensive Urgency - Lisinopril 10 mg daily started - Hydralazine prn taken off due to reflex tachycardia Breast lesion - Breast u/s ruled out abscess, likely atypical lymph node - bilateral axillary U/S ordered - surgery is following patient - IR is following patient for possible right atypical lymph node bx and deep breast tissue bx - pain control with motrin - follow up cultures - ID consulted- patient is on meropenem and vancomycin, ID ordered EDMAR - possible due to fibrocystic disease- consider adding Danazol or bromocriptine Left Thigh Abscess - surgery is following patient - follow up cultures - pain control with motrin Hx of Abscess Formation -rule out immunodeficiency- C1, C3, C4 C5, C9 Hx of Miscarriages - work up for procogulant state: lupus anticoagulant, protein c and s deficiency , factor v leiden, cardiolipin - STD panel pending - Beta Hcg pending - Acute Hepatitis Panel pending - RPR pending DVT Ppx - heparin subq GI - protonix Case seen and plan approved by attending physician, Dr. Araiza.
[2017-04-13] MEDS ORDERED: Metoprolol 1 mg/ml Inj IVP PRN (14:54)
--- NOTE | 2017-04-13 15:30 | CP.PCM.PN ---
Subjective - Date & Time of Evaluation Date of Evaluation: 04/13/17 Time of Evaluation: 15:13 - Subjective Subjective: PGY-[address] Haddad Pt complained of GONCALVES since this AM. Then pt went to ultrasound of axilla b/l and when she came back, her headache was stronger, pounding b/l frontal. She was able to ambulate to to the bathroom, maintaining balance, no fall. denies vision changes/jaw pain/nasal congestion/dizziness. VS reveals SBP 180. Hydralazine 10 was given at 1:30pm. Pt woke up from nap, feeling palpitation with mild lightheadedness. HR was noted at 170. Denies CP, SOB, N/V, diaphoresis. (+) subjective feeling of chills. Residents were paged Objective - Vital Signs/Intake and Output Vital Signs (last 24 hours): Temp Pulse Resp BP Pulse Ox 98.2 F 97 H 20 180/90 H 97 04/13/17 07:30 04/13/17 13:12 04/13/17 07:30 04/13/17 13:12 04/13/17 07:30 Intake and Output: 04/13/17 04/13/17 06:59 18:59 Intake Total 360 Balance 360 - Medications Medications: Current Medications Heparin Sodium (Porcine) (Heparin) 5,000 units SC Q12 [facility] PRN Reason: Protocol Last Admin: 04/13/17 10:37 Dose: Not Given Vancomycin HCl (Vancomycin 1gm) 1 gm in 250 mls @ 167 mls/hr IVPB DAILY [facility] PRN Reason: Protocol Last Admin: 04/13/17 10:34 Dose: 167 mls/hr Meropenem 1g/NS 100mL IVPB (Meropenem 1g/Ns 100ml Ivpb) 1 gm in 100 mls @ 100 mls/hr IVPB Q8 [facility] PRN Reason: Protocol Stop: 04/21/17 14:01 Last Admin: 04/13/17 13:14 Dose: 100 mls/hr Ibuprofen (Motrin Tab) 600 mg PO Q6H PRN PRN Reason: Pain, moderate (4-7) Lisinopril (Zestril) 10 mg PO DAILY [facility] Last Admin: 04/13/17 10:35 Dose: 10 mg Mupirocin (Bactroban Ointment) 0 gm TOP BID [facility] Last Admin: 04/13/17 10:36 Dose: 1 applic Ondansetron HCl (Zofran Inj) 4 mg IVP Q4H PRN PRN Reason: Nausea/Vomiting Pantoprazole Sodium (Protonix Ec Tab) 40 mg PO 0600 [facility] Last Admin: 04/13/17 05:45 Dose: 40 mg - Labs Labs: 04/13/17 07:40 04/13/17 07:40 - Constitutional Appears: No Acute Distress - Head Exam Head Exam: ATRAUMATIC, NORMAL INSPECTION, NORMOCEPHALIC - Eye Exam Eye Exam: EOMI, Normal appearance, PERRL. absent: Scleral icterus Pupil Exam: NORMAL ACCOMODATION - ENT Exam ENT Exam: Mucous Membranes Moist - Neck Exam Additional comments: supple - Respiratory Exam Respiratory Exam: Clear to Ausculation Bilateral. absent: Rales, Rhonchi, Wheezes - Cardiovascular Exam Cardiovascular Exam: Tachycardia, Clicks, Irregular Rhythm, +S1, +S2, Murmur - GI/Abdominal Exam GI & Abdominal Exam: Soft, Normal Bowel Sounds. absent: Guarding, Rigid, Tenderness - Extremities Exam Extremities Exam: Normal Capillary Refill. absent: Calf Tenderness - Neurological Exam Neurological Exam: Alert, Awake, Normal Gait, Oriented x3 - Psychiatric Exam Psychiatric exam: Anxious, Normal Mood - Skin Skin Exam: Dry, Warm Assessment and Plan - Assessment and Plan (Free Text) Plan: Headache Tachycardia likely from hydralazine R/O ischemic cause, metabolic cause, electrolyte cause, infectious cause Temp normal. No leukocytosis this AM. EKG sinus 120. TWI V1, V2 pending BMP, D-dimer, trop x 1 Pt refused heaprin this am, but walk around. She will take heparin tonight. motrin x 1 for headache.
[2017-04-13 15:54] LABS: INR 1.04 (0.93-1.08); PARTIAL THROMBOPLASTIN TIME 28.9 Seconds (23.7-30.8)
[2017-04-13 15:59] LABS: BLOOD UREA NITROGEN 10 mg/dL (7-21); CALCIUM 10.1 mg/dL (8.4-10.5); CARBON DIOXIDE 24 mmol/L (21-33); CHLORIDE 108 mmol/L (98-107); GFR AFRICAN-AMERICAN > 60; GLUCOSE,RANDOM 115 mg/dL (70-110); MAGNESIUM 2.2 mg/dL (1.7-2.2); POTASSIUM 3.9 mmol/L (3.6-5.0); SODIUM 143 mmol/L (132-148)
[2017-04-13 16:09] LABS: D DIMER 1.29 mg/L FEU (0-0.50)
[2017-04-13 16:16] LABS: TROPONIN I 0.01 ng/mL
--- NOTE | 2017-04-13 17:02 | CARD ---
APPROVED REPORT EKG Measurement Heart [id number] <Conclusion> Sinus tachycardia with premature atrial complexes Biatrial enlargement Anteroseptal infarct, age undetermined Abnormal ECG
--- NOTE | 2017-04-13 19:02 | PN ---
DATE: 04/13/2017 I reviewed the patient's axillary ultrasound. There are enlarged lymph nodes noted in the axillary region bilaterally measuring between 1 and 2 cm. Her past medical history is significant for a recurrent sinus tract with drainage related to breast bx years ago at [facility]. She recently underwent surgical biopsy by Dr. Carlitos Drake. Certainly the lymph nodes could be explained by the chronic inflammatory changes. If additional sampling of the lymph nodes is necessary, core biopsies can be obtained [facility] under ultrasound guidance. Andi Tanner MD MTDAnn
--- NOTE | 2017-04-13 19:23 | CP.PCM.PN ---
Subjective - Date & Time of Evaluation Date of Evaluation: 04/13/17 Time of Evaluation: 18:40 - Subjective Subjective: Patient developed anxiety, headache, dizziness, while Merrem was being infused. No fevers overnight, less pain on the right breast. Objective - Vital Signs/Intake and Output Vital Signs (last 24 hours): Temp Pulse Resp BP Pulse Ox 98.3 F 78 18 140/83 98 04/13/17 04:00 04/13/17 05:00 04/13/17 05:00 04/13/17 06:00 04/13/17 04:00 Intake and Output: 04/13/17 04/13/17 06:59 18:59 Intake Total 360 Balance 360 - Medications Medications: Current Medications Heparin Sodium (Porcine) (Heparin) 5,000 units SC Q12 [facility] PRN Reason: Protocol Last Admin: 04/13/17 05:44 Dose: Not Given Hydralazine HCl (Apresoline) 10 mg IVP Q6 PRN PRN Reason: systolic BP >160 Last Admin: 04/13/17 06:03 Dose: 10 mg Vancomycin HCl (Vancomycin 1gm) 1 gm in 250 mls @ 167 mls/hr IVPB DAILY [facility] PRN Reason: Protocol Last Admin: 04/12/17 10:14 Dose: 167 mls/hr Meropenem 1g/NS 100mL IVPB (Meropenem 1g/Ns 100ml Iv[facility]) 1 gm in 100 mls @ 100 mls/hr IVPB Q8 [facility] PRN Reason: Protocol Stop: 04/21/17 14:01 Last Admin: 04/13/17 05:45 Dose: 100 mls/hr Ibuprofen (Motrin Tab) 600 mg PO Q6H PRN PRN Reason: Pain, moderate (4-7) Lisinopril (Zestril) 10 mg PO DAILY [facility] Last Admin: 04/12/17 11:33 Dose: 10 mg Mupirocin (Bactroban Ointment) 0 gm TOP BID [facility] Last Admin: 04/12/17 17:13 Dose: 1 applic Ondansetron HCl (Zofran Inj) 4 mg IVP Q4H PRN PRN Reason: Nausea/Vomiting Pantoprazole Sodium (Protonix Ec Tab) 40 mg PO 0600 [facility] Last Admin: 04/13/17 05:45 Dose: 40 mg - Labs Labs: 04/13/17 07:40 04/12/17 09:00 - Constitutional Appears: Non-toxic, No Acute Distress - Head Exam Head Exam: NORMAL INSPECTION - ENT Exam ENT Exam: Mucous Membranes Moist - Neck Exam Neck Exam: absent: Meningismus - Respiratory Exam Respiratory Exam: Decreased Breath Sounds - Cardiovascular Exam Cardiovascular Exam: +S1, +S2 - GI/Abdominal Exam GI & Abdominal Exam: Soft. absent: Tenderness Assessment and Plan - Assessment and Plan (Free Text) Plan: Assessment Right breast skin and skin structure infection, on top of recurrent breast drainage in a patient with hidradenitis suppurativa and recurrent breast abscess R/O pyoderma gangrenosum adverse reaction to Merrem HTN congenital pulmonic valve disease S/P pulmonic valve replacement S/P anxiety disorder Plan continue Vancomycin and will change Merrem to Zosyn (since she had an adverse reaction) day 2; follow up wound cx (negative x 1 day), as well as fungal cx, AFB cultures and pathology since the issue is recurrent; pyoderma gangrenosum is also on the list of differential diagnosis Surgery following will monitor clinically
[2017-04-13] MEDS: Piperacillin/Tazobact 3.375 gm 100 ML IVPB SCH (23:07)
[2017-04-14] MEDS: Piperacillin/Tazobact 3.375 gm 100 ML IVPB SCH ×6 (06:18→23:20)
[2017-04-14] MEDS: Pantoprazole 40 mg EC Tab PO SCH (06:18)
[2017-04-14 07:15] LABS: BASO # 0.01 K/mm3 (0.0-2.0); BASO % 0.1 % (0.0-3.0); EOS # 0.1 (0.0-0.7); EOS % 1.3 % (1.5-5.0); GRAN # 5.32 (1.4-6.5); GRAN % 70.5 % (50.0-68.0); HEMATOCRIT 42.9 % (36.0-48.0); LYMPH # 1.7 (1.2-3.4); MEAN CELL VOLUME 86.5 fl (80.0-105.0); MEAN CORPUSCULAR HEMOGLOBIN 28.4 pg (25.0-35.0); MEAN CORPUSCULAR HGB CONC 32.9 g/dl (31.0-37.0); MEAN PLATELET VOLUME 9.4 fl (7.0-11.0); MONO # 0.5 (0.1-0.6); MONO % 6.1 % (1.0-6.0); RED CELL DISTRIBUTION WIDTH 15.7 % (11.5-14.5); WHITE BLOOD COUNT 7.6 10^3/ul (4.5-11.0)
[2017-04-14 07:34] LABS: ALB/GLOB RATIO 1.1 (1.1-1.8); ALKALINE PHOSPHATASE 68 U/L (38-126); ALT/SGPT 27 U/L (7-56); AST/SGOT 23 U/L (14-36); BILIRUBIN,TOTAL 0.5 mg/dL (0.2-1.3); BLOOD UREA NITROGEN 13 mg/dL (7-21); CALCIUM 9.7 mg/dL (8.4-10.5); CARBON DIOXIDE 24 mmol/L (21-33); CHLORIDE 109 mmol/L (98-107); GFR AFRICAN-AMERICAN > 60; GLUCOSE,RANDOM 91 mg/dL (70-110); POTASSIUM 4.3 mmol/L (3.6-5.0); SODIUM 144 mmol/L (132-148); TOTAL PROTEIN 7.8 g/dL (5.8-8.3)
--- NOTE | 2017-04-14 09:20 | US ---
HISTORY: Leg pain and swelling. Evaluate for DVT PHYSICIAN(S): Andi Tanner MD. TECHNIQUE: Duplex sonography and color-flow Doppler with graded compression were used to evaluate the deep venous systems of both lower extremities. FINDINGS: The visualized deep venous systems of both lower extremities are sonographically normal and compressible. Normal wave forms and augmentation are seen. There is no sonographic evidence for deep venous thrombosis in the visualized segments of both lower extremities. IMPRESSION: No sonographic evidence for deep venous thrombosis in the visualized segments of both lower extremities.
[2017-04-14] MEDS ORDERED: Sodium Chloride 0.9% 1,000 ML IV SCH (09:45)
[2017-04-14] MEDS: Vancomycin 1gm in NS 250ml 1 GM/250 ML BAG IVPB SCH (10:28)
--- NOTE | 2017-04-14 10:34 | CP.PCM.PN ---
Subjective - Date & Time of Evaluation Date of Evaluation: 04/14/17 Time of Evaluation: 09:10 - Subjective Subjective: Patient seen and examined at bedside. No acute events o/n. Patient states that she did not sleep well due to noisy environment. States that she wants to go home. Denies any further pain from the breast abscess. States that it continues to drain. Denies f/c/cp/sob/abdominal pain/n/v. Objective - Vital Signs/Intake and Output Vital Signs (last 24 hours): Temp Pulse Resp BP Pulse Ox 98.5 F 87 18 146/98 H 97 04/14/17 08:18 04/14/17 08:18 04/14/17 08:18 04/14/17 08:18 04/14/17 08:18 - Medications Medications: Current Medications Acetaminophen (Tylenol 325mg Tab) 650 mg PO Q6H PRN PRN Reason: Headache Bromocriptine Mesylate (Parlodel) 2.5 mg PO DAILY [facility] Diphenhydramine HCl (Benadryl) 25 mg PO HS [facility] Last Admin: 04/13/17 21:26 Dose: 25 mg Heparin Sodium (Porcine) (Heparin) 5,000 units SC Q12 [facility] PRN Reason: Protocol Last Admin: 04/13/17 21:26 Dose: 5,000 units Vancomycin HCl (Vancomycin 1gm) 1 gm in 250 mls @ 167 mls/hr IVPB DAILY [facility] PRN Reason: Protocol Last Admin: 04/13/17 10:34 Dose: 167 mls/hr Piperacillin Sod/Tazobactam Sod (Zosyn 3.375 In Ns 100ml) 100 mls @ 200 mls/hr IVPB Q6 [facility] PRN Reason: Protocol Stop: 04/21/17 00:01 Last Admin: 04/14/17 07:34 Dose: Not Given Sodium Chloride (Sodium Chloride 0.9%) 1,000 mls @ 100 mls/hr IV .Q10H [facility] Ibuprofen (Motrin Tab) 600 mg PO Q6H PRN PRN Reason: Pain, moderate (4-7) Last Admin: 04/13/17 15:18 Dose: 600 mg Lisinopril (Zestril) 10 mg PO DAILY [facility] Last Admin: 04/13/17 10:35 Dose: 10 mg Mupirocin (Bactroban Ointment) 0 gm TOP BID [facility] Last Admin: 04/13/17 20:47 Dose: Not Given Ondansetron HCl (Zofran Inj) 4 mg IVP Q4H PRN PRN Reason: Nausea/Vomiting Pantoprazole Sodium (Protonix Ec Tab) 40 mg PO 0600 [facility] Last Admin: 04/14/17 06:18 Dose: 40 mg - Labs Labs: PT 11.2 Seconds (9.9-11.8) 04/13/17 15:35 INR 1.04 (0.93-1.08) 04/13/17 15:35 APTT 28.9 Seconds (23.7-30.8) 04/13/17 15:35 - Additional Findings Additional findings: - Constitutional Appears: Non-toxic, No Acute Distress - Head Exam Head Exam: ATRAUMATIC, NORMAL INSPECTION, NORMOCEPHALIC - Eye Exam Eye Exam: EOMI, Normal appearance - ENT Exam ENT Exam: Mucous Membranes Moist, Normal Exam - Neck Exam Neck exam: Positive for: Normal Inspection. Negative for: Lymphadenopathy - Respiratory Exam Respiratory Exam: Clear to Auscultation Bilateral, NORMAL BREATHING PATTERN. absent: Rales, Rhonchi, Wheezes - Cardiovascular Exam Cardiovascular Exam: RRR, +S1, +S2 - GI/Abdominal Exam GI & Abdominal Exam: Normal Bowel Sounds, Soft. absent: Tenderness - Extremities Exam Extremities exam: Negative for: calf tenderness, pedal edema - Neurological Exam Neurological exam: Alert, CN II-XII Intact, Oriented x3 - Psychiatric Exam Psychiatric exam: Normal Affect, Normal Mood - Skin Additional comments: Right breast wound. Right breast with firm nodule noted at the 12 o'clock position. 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 Arrhythmia - EKG showed sinus tachycardia yesterday - Patient denies chest pain and SOB - Troponins negative - US of bilateral lower extremities showed no signs of DVT - D-dimer elevated- CTA ordered and pending Hypertensive Urgency - Lisinopril 10 mg daily started - Hydralazine prn taken off due to reflex tachycardia Breast lesion - Breast u/s ruled out abscess, likely atypical lymph node- speak with surgery for biopsy and Dr. Drake for hormone therapy - Surgery is following patient - IR is following patient for possible right atypical lymph node bx and deep breast tissue bx - Pain control with motrin - ID consulted- patient is on vancomycin and zosyn, taken of meropenem due to adverse reaction, ID ordered EDMAR resulted and is negative - Possible due to fibrocystic disease- consider adding Danazol or bromocriptine Left Thigh Abscess - surgery is following patient - follow up cultures - pain control with motrin Hx of Abscess Formation -rule out immunodeficiency- C1, C3, C4 C5, C9 pending Hx of Miscarriages - work up for procogulant state: lupus anticoagulant, protein c and s deficiency , factor v leiden, cardiolipin pending - STD panel pending - Beta Hcg pending - Acute Hepatitis Panel negative - RPR negative - HIV negative IV Access Difficulty - midline consult placed for IV abx Social Issues - social work consult- daughter 12 yo at home, needs guardian? DVT Ppx - heparin subq GI - protonix Case seen and plan approved by attending physician, Dr. Raymundo.
--- NOTE | 2017-04-14 11:26 | CP.PCM.PCO ---
Physician Communication Note - Physician Communication Note Physician Communication Note: wound c/s neg/Rx bromocriptine 2.5/d
[2017-04-14] MEDS ORDERED: Metoprolol 1 mg/ml Inj IVP STA (12:21)
--- NOTE | 2017-04-14 12:50 | CP.PCM.PN ---
Subjective - Date & Time of Evaluation Date of Evaluation: 04/14/17 Time of Evaluation: 12:38 - Subjective Subjective: General Surgery Note for Dr. Drake Patient spoken to at bedside. MELISSA. Patient states she is confused with the care. Surgery team explained that bromocriptine will be used for prolactin secretion. Patient has had white discharge from the opening above her areola. The drainage occurs a week prior to her period. Cultures are negative at this point. Cultures were taken on Wednesday 04/11. Patient denies F/C, N/V. Patient has a normal WBC. No fever. Objective - Vital Signs/Intake and Output Vital Signs (last 24 hours): Temp Pulse Resp BP Pulse Ox 98.5 F 79 18 175/118 H 97 04/14/17 08:18 04/14/17 10:45 04/14/17 08:18 04/14/17 12:09 04/14/17 08:18 - Medications Medications: Current Medications Acetaminophen (Tylenol 325mg Tab) 650 mg PO Q6H PRN PRN Reason: Headache Bromocriptine Mesylate (Parlodel) 2.5 mg PO DAILY SARITA Diphenhydramine HCl (Benadryl) 25 mg PO HS SARITA Last Admin: 04/13/17 21:26 Dose: 25 mg Heparin Sodium (Porcine) (Heparin) 5,000 units SC Q12 SARITA PRN Reason: Protocol Last Admin: 04/14/17 10:44 Dose: 5,000 units Vancomycin HCl (Vancomycin 1gm) 1 gm in 250 mls @ 167 mls/hr IVPB DAILY SARITA PRN Reason: Protocol Last Admin: 04/13/17 10:34 Dose: 167 mls/hr Piperacillin Sod/Tazobactam Sod (Zosyn 3.375 In Ns 100ml) 100 mls @ 200 mls/hr IVPB Q6 SARITA PRN Reason: Protocol Stop: 04/21/17 00:01 Last Admin: 04/14/17 12:34 Dose: Not Given Sodium Chloride (Sodium Chloride 0.9%) 1,000 mls @ 100 mls/hr IV .Q10H SARITA Ibuprofen (Motrin Tab) 600 mg PO Q6H PRN PRN Reason: Pain, moderate (4-7) Last Admin: 04/13/17 15:18 Dose: 600 mg Lisinopril (Zestril) 10 mg PO DAILY SARITA Last Admin: 04/14/17 10:45 Dose: 10 mg Mupirocin (Bactroban Ointment) 0 gm TOP BID [facility] Last Admin: 04/14/17 10:43 Dose: 1 applic Ondansetron HCl (Zofran Inj) 4 mg IVP Q4H PRN PRN Reason: Nausea/Vomiting Pantoprazole Sodium (Protonix Ec Tab) 40 mg PO 0600 [facility] Last Admin: 04/14/17 06:18 Dose: 40 mg - Labs Labs: PT 11.2 Seconds (9.9-11.8) 04/13/17 15:35 INR 1.04 (0.93-1.08) 04/13/17 15:35 APTT 28.9 Seconds (23.7-30.8) 04/13/17 15:35 - Constitutional Appears: Non-toxic, No Acute Distress - Head Exam Head Exam: NORMAL INSPECTION - Eye Exam Eye Exam: EOMI, Normal appearance - ENT Exam ENT Exam: Mucous Membranes Moist - Neck Exam Neck Exam: Full ROM - Respiratory Exam Respiratory Exam: Clear to Ausculation Bilateral. absent: Accessory Muscle Use , Respiratory Distress - Cardiovascular Exam Cardiovascular Exam: REGULAR RHYTHM. absent: Bradycardia, Tachycardia - GI/Abdominal Exam GI & Abdominal Exam: Soft. absent: Guarding, Rigid, Tenderness, Rebound - Extremities Exam Extremities Exam: Full ROM, Normal Inspection. absent: Joint Swelling - Neurological Exam Neurological Exam: Alert, Awake, Oriented x3 - Psychiatric Exam Psychiatric exam: Normal Affect, Normal Mood - Skin Skin Exam: Dry, Normal Color, Warm Assessment and Plan - Assessment and Plan (Free Text) Assessment: 41F with drainage from R breast Plan: breast US results: no signs of abscess, possible atypical lymph node Patient is currently on Zosyn Cultures currently negative Control HTN, per medical team no surgical intervention at this time. patient is hemodynamically stable. vitals stable. Patient was placed on bromocriptine to treat glandular secretions. d/w Dr. Vidal Feng, DO PGY1
[2017-04-14] MEDS ORDERED: Iohexol 350 MG/100 ML VIAL ONE (17:33)
--- NOTE | 2017-04-14 18:28 | PN ---
DATE: 04/14/2017 SUBJECTIVE: The patient is in bed, no acute distress, nontoxic. PHYSICAL EXAMINATION: VITAL SIGNS: Temperature is 98, blood pressure is 140/90 and respiratory rate of 18. HEENT: Unremarkable. NECK: Supple. LUNGS: Decreased breath sounds. HEART: Normal S1 and S2. ABDOMEN: Soft. LABORATORY EXAMINATION: Reveals a white count of 7.6, hemoglobin of 14 and platelets of 265. BUN of 13, creatinine of 0.8. Procalcitonin is 0.05. Immunology is noted. HIV is nonreactive. Hepatitis profile is nonreactive. RPR is nonreactive. Microbiology reveals blood cultures have no growth and breast culture is pending. ASSESSMENT AND PLAN: This is 41-year-old female with right breast skin and skin structure infection, top of recurrent breast drainage in a patient with hidradenitis suppurativa and recurrent breast abscess, on vancomycin. The patient with hypertension, congenital pulmonic valve disease, status post pulmonic valve replacement, status post section, anxiety, on vanco, maybe we will switch to p.o., cultures negative. Should have a deep tissue biopsy for Gram stain and routine cultures, fungal stain, fungal cultures, and AFB statin and AFB cultures in addition to pathology and workup for pyoderma gangrenosum. We will follow with you. Matthew Jessica MD
--- NOTE | 2017-04-14 18:50 | CT ---
PROCEDURE: CTA Chest with contrast (Pulmonary Angiogram). HISTORY: Rule out P COMPARISON: Comparison made with prior chest radiograph 12/07/2016 TECHNIQUE: Contiguous helical/transaxial al computed tomography images were obtained of the chest in the pulmonary arterial phase of enhancement. Coronal and sagittal reformatted images were created and reviewed. Intravenous contrast dose: Radiation dose: Total exam DLP = 30.61 mGy-cm. This CT exam was performed using one or more of the following dose reduction techniques: Automated exposure control, adjustment of the mA and/or kV according to patient size, and/or use of iterative reconstruction technique. FINDINGS: PULMONARY ARTERIES: The visualized pulmonary trunk, right and left main, lobar, segmental and proximal subsegmental branches of the pulmonary arteries are well opacified with no definitive filling defects seen to suggest acute central pulmonary embolus. . Note however that there is a metallic circumferential ring - replacement valve which appears to be located at the level of the pulmonary semilunar valve resulting some streak artifact diminution of fine detail at this level. . There is dilatation of the pulmonary trunk and to a lesser degree at right and left main pulmonary arteries. . Given these limitations, no definitive evidence of filling defects seen within the pulmonary trunk or right and left main pulmonary arteries. The visualized lobar, segmental and proximal subsegmental branches of the pulmonary arteries are poorly opacified though no definitive discrete filling defects are seen to suggest acute central pulmonary embolus. AORTA: The ascending thoracic aorta measures approximately 2.5 cm and descending thoracic aorta measures approximately 1.95 cm. Min. No evidence of dissection. LUNGS: No focal consolidation however minor scarring changes seen along middle lobe and the associated adjacent pleural thickening. . No evidence of obvious parenchymal mass. PLEURAL SPACES: No evidence of effusion or pneumothorax. HEART: Heart is mildly enlarged. No significant pericardial effusion. Left ventricular hypertrophy. There is mild dilatation of the right ventricle and left atrium. LYMPH NODES: No no significant mediastinal or hilar adenopathy is identified. BONES, CHEST WALL: Sternotomy wires again noted. Mild multilevel degenerative spondylosis of the thoracic spine. There are no acute compression fractures. Moderate degenerative spondylosis noted at the C6-C7 disc space level as well. OTHER FINDINGS: Note is made of what appears to represent mild medial position of the left vocal cord. Rule out paralysis of the left vocal cord. IMPRESSION: There has been semi lunar valve replacement. Dilatation of the pulmonary trunk. Due to streak and beam hardening artifact arising from the metallic replacement valve evaluation somewhat limited. No definitive radiographic evidence of central pulmonary embolus. No acute infiltrates. . There appears to be medial position of the left vocal cord. Rule out left-sided vocal cord paralysis. .
[2017-04-15 00:50] VITALS: RESP 20
[2017-04-15] MEDS: Piperacillin/Tazobact 3.375 gm 100 ML IVPB SCH ×2 (06:04→11:47)
[2017-04-15] MEDS: Pantoprazole 40 mg EC Tab PO SCH (07:01)
[2017-04-15 07:15] LABS: BASO # 0.01 K/mm3 (0.0-2.0); BASO % 0.1 % (0.0-3.0); EOS # 0.2 (0.0-0.7); EOS % 2.7 % (1.5-5.0); GRAN # 3.8 (1.4-6.5); GRAN % 56.6 % (50.0-68.0); HEMATOCRIT 39.4 % (36.0-48.0); LYMPH # 2.2 (1.2-3.4); MEAN CELL VOLUME 85.8 fl (80.0-105.0); MEAN CORPUSCULAR HEMOGLOBIN 28.3 pg (25.0-35.0); MEAN PLATELET VOLUME 9.2 fl (7.0-11.0); MONO # 0.5 (0.1-0.6); MONO % 7.6 % (1.0-6.0); RED CELL DISTRIBUTION WIDTH 15.1 % (11.5-14.5); WHITE BLOOD COUNT 6.7 10^3/ul (4.5-11.0)
[2017-04-15 07:33] LABS: ALB/GLOB RATIO 1.1 (1.1-1.8); ALKALINE PHOSPHATASE 55 U/L (38-126); ALT/SGPT 26 U/L (7-56); AST/SGOT 23 U/L (14-36); BILIRUBIN,TOTAL 0.3 mg/dL (0.2-1.3); BLOOD UREA NITROGEN 9 mg/dL (7-21); CALCIUM 8.9 mg/dL (8.4-10.5); CARBON DIOXIDE 25 mmol/L (21-33); CHLORIDE 109 mmol/L (98-107); GFR AFRICAN-AMERICAN > 60; GLUCOSE,RANDOM 84 mg/dL (70-110); POTASSIUM 4.3 mmol/L (3.6-5.0); SODIUM 142 mmol/L (132-148); TOTAL PROTEIN 6.8 g/dL (5.8-8.3)
[2017-04-15 09:37] VITALS: BP 167/103; PULSE 61; TEMP 98.5; O2SAT 100
[2017-04-15] MEDS: Vancomycin 1gm in NS 250ml 1 GM/250 ML BAG IVPB SCH (09:42)
--- NOTE | 2017-04-15 09:55 | CP.PCM.PN ---
Subjective - Date & Time of Evaluation Date of Evaluation: 04/15/17 Time of Evaluation: 09:50 - Subjective Subjective: General Surgery Note for Dr. Drake Patient spoken to at bedside. NAEON. Patient denies F/C, N/V. Patient has a normal WBC. No fever. Patient would like to go home CTA negative for PE Bromocriptine 2.5 per day ordered by Dr. Drake. Objective - Vital Signs/Intake and Output Vital Signs (last 24 hours): Temp Pulse Resp BP Pulse Ox 98.5 F 61 20 167/103 H 100 04/15/17 07:00 04/15/17 09:43 04/15/17 07:00 04/15/17 09:43 04/15/17 07:00 Intake and Output: 04/15/17 04/15/17 06:59 18:59 Intake Total 600 Balance 600 - Medications Medications: Current Medications Acetaminophen (Tylenol 325mg Tab) 650 mg PO Q6H PRN PRN Reason: Headache Bromocriptine Mesylate (Parlodel) 2.5 mg PO DAILY SARITA Last Admin: 04/15/17 09:45 Dose: 2.5 mg Diphenhydramine HCl (Benadryl) 25 mg PO HS SARITA Last Admin: 04/14/17 21:13 Dose: 25 mg Heparin Sodium (Porcine) (Heparin) 5,000 units SC Q12 SARITA PRN Reason: Protocol Last Admin: 04/15/17 09:44 Dose: 5,000 units Vancomycin HCl (Vancomycin 1gm) 1 gm in 250 mls @ 167 mls/hr IVPB DAILY SARITA PRN Reason: Protocol Last Admin: 04/15/17 09:42 Dose: 167 mls/hr Piperacillin Sod/Tazobactam Sod (Zosyn 3.375 In Ns 100ml) 100 mls @ 200 mls/hr IVPB Q6 SARITA PRN Reason: Protocol Stop: 04/21/17 00:01 Last Admin: 04/15/17 06:04 Dose: Not Given Sodium Chloride (Sodium Chloride 0.9%) 1,000 mls @ 100 mls/hr IV .Q10H SARITA Last Admin: 04/14/17 18:28 Dose: 100 mls/hr Ibuprofen (Motrin Tab) 600 mg PO Q6H PRN PRN Reason: Pain, moderate (4-7) Last Admin: 04/13/17 15:18 Dose: 600 mg Lisinopril (Zestril) 10 mg PO DAILY [facility] Last Admin: 04/15/17 09:43 Dose: 10 mg Mupirocin (Bactroban Ointment) 0 gm TOP BID [facility] Last Admin: 04/15/17 09:44 Dose: 1 applic Ondansetron HCl (Zofran Inj) 4 mg IVP Q4H PRN PRN Reason: Nausea/Vomiting Pantoprazole Sodium (Protonix Ec Tab) 40 mg PO 0600 [facility] Last Admin: 04/15/17 07:01 Dose: 40 mg - Labs Labs: 04/15/17 06:30 04/15/17 06:30 PT 11.2 Seconds (9.9-11.8) 04/13/17 15:35 INR 1.04 (0.93-1.08) 04/13/17 15:35 APTT 28.9 Seconds (23.7-30.8) 04/13/17 15:35 - Constitutional Appears: No Acute Distress - Eye Exam Eye Exam: EOMI, Normal appearance - ENT Exam ENT Exam: Mucous Membranes Moist - Neck Exam Neck Exam: Full ROM - Respiratory Exam Respiratory Exam: Clear to Ausculation Bilateral, NORMAL BREATHING PATTERN. absent: Accessory Muscle Use, Respiratory Distress - Cardiovascular Exam Cardiovascular Exam: REGULAR RHYTHM. absent: Bradycardia, Tachycardia - GI/Abdominal Exam GI & Abdominal Exam: Soft, Normal Bowel Sounds. absent: Tenderness - Extremities Exam Extremities Exam: Full ROM, Normal Inspection - Neurological Exam Neurological Exam: Alert, Awake, Oriented x3 - Psychiatric Exam Psychiatric exam: Normal Affect, Normal Mood - Skin Skin Exam: Dry, Intact, Normal Color, Warm Additional comments: R axilla with mild tenderness to palpation R superior border of areola has scaring and an opening with thick white, frazier drainage on expression nipple is slightly retracted from scarring Assessment and Plan - Assessment and Plan (Free Text) Assessment: 41F presents with drainage from breast tissue Plan: breast US results: no signs of abscess, possible atypical lymph node Patient is currently on Zosyn and Vanco per medicnie team Cultures currently negative Control HTN, per medical team no surgical intervention at this time. patient is hemodynamically stable. vitals stable. Patient was placed on bromocriptine to treat glandular secretions. d/w Dr. Vidal Feng, DO PGY1
--- NOTE | 2017-04-15 11:37 | CP.PCM.PCO ---
Physician Communication Note - Physician Communication Note Physician Communication Note: OK Home with Parlodel(bromocriptine2.5/d)-f/u office
--- NOTE | 2017-04-15 12:31 | PN ---
DATE: 04/15/2017 SUBJECTIVE: The patient seen in bed, in no acute distress, nontoxic. No fevers. PHYSICAL EXAMINATION: VITAL SIGNS: Temperature is 98, blood pressure 150/70, and respiratory rate is 16. HEENT: Unremarkable. NECK: Supple. LUNGS: Decreased breath sounds. HEART: Normal S1 and S2. ABDOMEN: Soft. LABORATORY DATA: Reveals the patient's white count of 6.7, hemoglobin 13. Chemistry reveals of BUN of 9, and creatinine of 0.7. Urinalysis is noted. Serology is noted. Microbiology is reviewed. Cultures are negative. ASSESSMENT AND PLAN: This is a 41-year-old female with breast skin and skin soft tissue infection, top of recurrent breast drainage in a patient with hidradenitis suppurativa and recurrent breast abscess, on vancomycin in the setting of hypertension, congenital pulmonic valve disease, status post pulmonic valve replacement, history of section, anxiety. Currently, the cultures are negative. The patient ideally should have a deep tissue culture sent for Gram stain cultures and AFB for smears and cultures and fungal smears and cultures. In additional we will look for pyoderma gangrenosum and so far no growth, the patient may be discharged on p.o. antibiotics, may use p.o. doxycycline and p.o. Augmentin together for 7 days. Matthew Jessica MD
[2017-04-15 14:27] LABS: CARDIOLIPIN AB (IGA) <11 APL (<=11)
--- NOTE | 2017-04-15 15:24 | CP.PCM.DIS ---
Provider - Provider Date of Admission: 04/14/17 09:31 Attending physician: Butch Raymundo MD Primary care physician: Kirill Haddad MD Consults: Dr. Drake- General Surgery Dr. Andi Tanner - Interventional Radiology Dr. Grace- Infectious Disease Time Spent in preparation of Discharge (in minutes): 30 Diagnosis - Discharge Diagnosis (1) Breast anomaly Status: Acute Priority: Medium (2) Arrhythmia Status: Acute Priority: Medium (3) Hypertension Status: Acute Priority: Medium Hospital Course - Lab Results Lab Results: Most Recent Lab Values WBC 6.7 10^3/ul (4.5-11.0) 04/15/17 06:30 RBC 4.59 10^6/uL (3.5-6.1) 04/15/17 06:30 Hgb 13.0 g/dL (12.0-16.0) 04/15/17 06:30 Hct 39.4 % (36.0-48.0) 04/15/17 06:30 MCV 85.8 fl (80.0-105.0) 04/15/17 06:30 MCH 28.3 pg (25.0-35.0) 04/15/17 06:30 MCHC 33.0 g/dl (31.0-37.0) 04/15/17 06:30 RDW 15.1 % (11.5-14.5) H 04/15/17 06:30 Plt Count 255 10^3/uL (120.0-450.0) 04/15/17 06:30 MPV 9.2 fl (7.0-11.0) 04/15/17 06:30 Gran % 56.6 % (50.0-68.0) 04/15/17 06:30 Lymph % (Auto) 33.0 % (22.0-35.0) 04/15/17 06:30 [place] % (Auto) 7.6 % (1.0-6.0) H 04/15/17 06:30 Eos % (Auto) 2.7 % (1.5-5.0) 04/15/17 06:30 Baso % (Auto) 0.1 % (0.0-3.0) 04/15/17 06:30 Gran # 3.80 (1.4-6.5) 04/15/17 06:30 Lymph # 2.2 (1.2-3.4) 04/15/17 06:30 [place] # 0.5 (0.1-0.6) 04/15/17 06:30 Eos # 0.2 (0.0-0.7) 04/15/17 06:30 Baso # 0.01 K/mm3 (0.0-2.0) 04/15/17 06:30 ESR 32 mm/hr (0.0-20.0) H 04/12/17 09:00 PT 11.2 Seconds (9.9-11.8) 04/13/17 15:35 INR 1.04 (0.93-1.08) 04/13/17 15:35 APTT 28.9 Seconds (23.7-30.8) 04/13/17 15:35 D-Dimer, Quantitative 1.29 mg/L FEU (0-0.50) H 04/13/17 15:35 Sodium 142 mmol/L (132-148) 04/15/17 06:30 Potassium 4.3 mmol/L (3.6-5.0) 04/15/17 06:30 Chloride 109 mmol/L (98-107) H 04/15/17 06:30 Carbon Dioxide 25 mmol/L (21-33) 04/15/17 06:30 Anion Gap 12 (10-20) 04/15/17 06:30 BUN 9 mg/dL (7-21) 04/15/17 06:30 Creatinine 0.7 mg/dL (0.5-1.4) 04/15/17 06:30 Est GFR ( Amer) > 60 04/15/17 06:30 Est GFR (Non-Af Amer) > 60 04/15/17 06:30 Random Glucose 84 mg/dL (70-110) 04/15/17 06:30 Hemoglobin A1c 5.5 % (4.2-6.5) 04/12/17 09:00 Calcium 8.9 mg/dL (8.4-10.5) 04/15/17 06:30 Phosphorus 3.4 mg/dL (2.5-4.5) 04/12/17 00:50 Magnesium 2.2 mg/dL (1.7-2.2) 04/13/17 15:35 Total Bilirubin 0.3 mg/dL (0.2-1.3) 04/15/17 06:30 AST 23 U/L (14-36) 04/15/17 06:30 ALT 26 U/L (7-56) 04/15/17 06:30 Alkaline Phosphatase 55 U/L (38-126) 04/15/17 06:30 Troponin I 0.01 ng/mL 04/13/17 15:35 C-React Prot High Sens 10.76 mg/L (1.00-3.00) H 04/12/17 09:00 Total Protein 6.8 g/dL (5.8-8.3) 04/15/17 06:30 Albumin 3.6 g/dL (3.0-4.8) 04/15/17 06:30 Globulin 3.2 gm/dL 04/15/17 06:30 Albumin/Globulin Ratio 1.1 (1.1-1.8) 04/15/17 06:30 Triglycerides 146 mg/dL (35-160) 04/12/17 00:50 Cholesterol 135 mg/dL (130-200) 04/12/17 00:50 LDL Cholesterol Direct 70 mg/dL (0-129) 04/12/17 00:50 HDL Cholesterol 39 mg/dL (29-60) 04/12/17 00:50 25-OH Vitamin D Total < 12.8 NG/ML (30.0-100.0) L 04/15/17 06:30 Procalcitonin < 0.05 NG/ML (0.19-0.49) L 04/12/17 00:50 TSH 3rd Generation 1.67 mIU/mL (0.46-4.68) 04/13/17 15:35 Urine HCG, Qual Negative (NEGATIVE) 04/14/17 16:00 EDMAR Screen Negative (Negative) 04/12/17 09:00 EDMAR Titer TEST NOT PERFORMED 04/12/17 09:00 EDMAR Titer 2 TEST NOT PERFORMED 04/12/17 09:00 EDMAR Pattern TEST NOT PERFORMED 04/12/17 09:00 EDMAR Pattern 2 TEST NOT PERFORMED 04/12/17 09:00 Anti-Cardiolipin IgG Ab <14 GPL (<=14) 04/13/17 13:32 Anti-Cardiolipin IgA Ab <11 APL (<=11) 04/13/17 13:32 Anti-Cardiolipin IgM Ab <12 MPL (<=12) 04/13/17 13:32 Complement C3 137.0 mg/dL (88.0-165.0) 04/13/17 13:32 Complement C4 38.2 mg/dL (14.0-44.0) 04/13/17 13:32 RPR Nonreactive (NONREACTIVE) 04/13/17 13:32 Hepatitis A IgM Ab Negative (NEGATIVE) 04/13/17 13:32 Hep Bs Antigen Negative (NEGATIVE) 04/13/17 13:32 Hep B Core IgM Ab Negative (NEGATIVE) 04/13/17 13:32 Hepatitis C Antibody Negative (NEGATIVE) 04/13/17 13:32 HIV 1&2 Ag/Ab, 4th Gen Nonreactive (Nonreactive) 04/12/17 09:00 - Hospital Course Hospital Course: Patient is a 41 y/o female with PMH of HTN, congenital heart disease with pulmonic valve replacement x 2, recurrent right breast abscess, hidradentitis suppurativa who was admitted to the hospital for evaluation and treatment of hypertensive urgency and right recurrent breast abscess. With the use of lab work, imaging, and physical examinations the patient was diagnosed and treated for hypertensive urgency and breast lesion. During her hospital stay the patient was seen by general surgery (Dr. Drake), interventional radiology ( Dr. Andi Tanner), and infectious disease (Dr. Jessica). Dr. Drake started patient on bromocriptine for treatment of glandular secretions. Dr. Tanner recommended outpatient core needle biopsies for evaluation of atypical lesions. Dr. Hernandez recommended outpatient antibiotics of doxycyline and augmentin both for a 7 day course. Patient also underwent a bilateral lower extremity ultrasounds which showed no DVT, and bilateral upper extremity ultrasounds showing abnormal appearing right axillary lymph node. Patient also underwent a CTA showing no signs of pulmonary embolus. Patient instructed to follow up with her PMD, Surgeon (Dr. Drake), and earth moving machine operator (Dr. Ren) within one week from discharge. Patient instructed to take medications as prescribed. Patient is medically stable for discharge and both understands/ agrees with discharge plan. Patient informed to return to ED for evaluation of fever, chills, chest pain, SOB, abdominal pain, N/V, diarrhea, constipation, and urinary symptoms. - Constitutional Appears: Non-toxic, No Acute Distress - Head Exam Head Exam: ATRAUMATIC, NORMAL INSPECTION, NORMOCEPHALIC - Eye Exam Eye Exam: EOMI, Normal appearance - ENT Exam ENT Exam: Mucous Membranes Moist, Normal Exam - Neck Exam Neck exam: Positive for: Normal Inspection. Negative for: Lymphadenopathy - Respiratory Exam Respiratory Exam: Clear to Auscultation Bilateral, NORMAL BREATHING PATTERN. absent: Rales, Rhonchi, Wheezes - Cardiovascular Exam Cardiovascular Exam: RRR, +S1, +S2 - GI/Abdominal Exam GI & Abdominal Exam: Normal Bowel Sounds, Soft. absent: Tenderness - Extremities Exam Extremities exam: Negative for: calf tenderness, pedal edema - Neurological Exam Neurological exam: Alert, CN II-XII Intact, Oriented x3 - Psychiatric Exam Psychiatric exam: Normal Affect, Normal Mood - Skin Additional comments: Right breast lesion Right breast with firm nodule noted at the 12 o'clock position. B/L axillas notable for small nodules Discharge Exam - Head Exam Head Exam: NORMAL INSPECTION Discharge Plan - Discharge Medications Prescriptions: Amoxicillin/Clavulanate [Augmentin 875 MG-125 MG] 1 tab PO BID #14 tab Doxycycline Hyclate [Doryx] 100 mg PO BID #14 cap Lisinopril [Zestril] 10 mg PO DAILY #30 tab Mupirocin 2% Ointment [Bactroban Ointment] 1 ml TOP BID #1 tub - Follow Up Plan Condition: STABLE Disposition: HOME/ ROUTINE Instructions: Breast Abscess Drainage (DC), Cellulitis (DC), Chronic Hypertension (DC) Additional Instructions: Discharge instructions 1. Follow up with primary care doctor, Dr. Haddad within 1 week 2. Follow up with surgeon, Dr. Drake next week. Appointment was made by patient. 3. Follow wound care per instructions 4. Finish 7 days of antibiotics to prevent bacteria resistency 5. Follow up with OBGYN for biopsy of axilla and breast ulcers. Please tell the OBGYN to order the following labs regarding the biopsy: Tissue culture, gram stain, AFB culture and smear, fungal culture and smear New Medications Lisinopril 10 mg daily Bromocriptine trial x 1 month mupirocin topical ointment Antibiotics - Doxycyclin and augmentin Referrals: [facility] [Provider Group] Kirill Haddad MD [Primary Care Provider] - Carlitos Drake MD [Staff Provider] -
[2017-04-18 19:30] LABS: Interpretation Negative (Negative); RNP 1.3 AI (<1.0); RNP Interpretation Positive (Negative)
== END 2017-04-15 15:16 | disposition home or self-care (01) | DRG 305 ==
LOC: ED 20:29 → ERH 04-12 00:02 → 5RSO 04-12 02:31 → OBSVTOIN 04-14 09:31
PROVIDERS: ADMIT Internal Medicine; ATTEND Internal Medicine
DX: I16.0 Hypertensive urgency (principal); N61.1 Abscess of the breast and nipple; F41.9 Anxiety disorder, unspecified; L73.2 Hidradenitis suppurativa; I10 Essential (primary) hypertension; G43.909 Migraine, unspecified, not intractable, without status migrainosus; R59.9 Enlarged lymph nodes, unspecified; I49.9 Cardiac arrhythmia, unspecified; Z91.19 Patient's noncompliance with other medical treatment and regimen; Z95.2 Presence of prosthetic heart valve; Z87.891 Personal history of nicotine dependence

== ENCOUNTER 2017-08-19 01:22 | Emergency (ER) | payer OTHER, MEDICARE ==
[2017-08-19 01:30] VITALS: BMI 57.6
--- NOTE | 2017-08-19 01:43 | ED PDOC ---
Arrival/HPI - General Chief Complaint: Flu-like Symptoms Time Seen by Provider: 08/19/17 01:34 Historian: Patient - History of Present Illness Narrative History of Present Illness (Text): 08/19/17 01:40 42 year old female, whose past medical history includes hypertension, congenital pulmonary valve, and recurrent R. breast abscess, presents to the Emergency department complaining of fever, chills, generalized body ache and cough since yesterday morning. Patient informs taking dayquil today with no improvement to symptoms. Patient additionally informs head discomfort and frequent urination when coughing. Patient denies any nausea, vomiting, chest pain, shortness of breath, abdominal pain, diarrhea, sick contact or any other complaints. Time/Duration: 24 hours Symptom Onset: Gradual Symptom Course: Unchanged Quality: Aching Activities at Onset: Light Context: Home Past Medical History - Provider Review Nursing Documentation Reviewed: Yes - Tetanus Immunization Tetanus Immunization: Unknown - Cardiac Hx Pacemaker: No - Pulmonary Hx Respiratory Disorders: No - Neurological Hx Neurological Disorder: No - HEENT Hx HEENT Disorder: No - Renal Hx Renal Disorder: No - Endocrine/Metabolic Hx Endocrine Disorders: No - Hematological/Oncological Hx Cancer: No - Integumentary Hx Dermatological Disorder: No Other/Comment: POOR HEALING OF SURGICAL WOUND. - Musculoskeletal/Rheumatological Hx Musculoskeletal Disorders: No - Gastrointestinal Hx Gastrointestinal Disorders: No - Genitourinary/Gynecological Hx Genitourinary Disorders: No - Psychiatric Hx Psychophysiologic Disorder: No Hx Substance Use: Yes (marijuana) - Surgical History Hx Mastectomy: No - Anesthesia Hx Anesthesia: Yes Family/Social History - Physician Review Nursing Documentation Reviewed: Yes Family/Social History: No Known Family HX Smoking Status: Former Smoker Hx Alcohol Use: No Hx Substance Use: Yes (marijuana) Allergies/Home Meds Allergies/Adverse Reactions: Allergies dopamine Allergy (Verified 08/19/17 02:33) hives Home Medications: Home Meds Medication Instructions Recorded Confirmed Amoxicillin/Clavulanate [Augmentin 1 tab PO TID 08/19/17 08/19/17 875 MG-125 MG] cloNIDine [clonidine HCl] 0.2 mg PO BID 08/19/17 08/19/17 Review of Systems - Physician Review All systems were reviewed & negative as marked: Yes - Review of Systems Constitutional: Fevers, Other (chills ) Eyes: Normal ENT: Normal Respiratory: Cough. absent: SOB Cardiovascular: Normal. absent: Chest Pain Gastrointestinal: Normal. absent: Abdominal Pain, Diarrhea, Nausea, Vomiting Genitourinary Female: Normal Musculoskeletal: Other (Generalized body ache ) Skin: Normal Neurological: Headache Endocrine: Normal Hemo/Lymphatic: Normal Psychiatric: Normal Physical Exam Vital Signs Reviewed: Yes Vital Signs Temp Pulse Resp BP Pulse Ox 08/19/17 01:38 93 H 18 148/80 99 08/19/17 01:29 102.9 F H Temperature: Febrile Appearance: Positive for: Well-Appearing, Non-Toxic, Uncomfortable Pain Distress: Mild Mental Status: Positive for: Alert and Oriented X 3 - Systems Exam Head: Present: Atraumatic, Normocephalic Pupils: Present: PERRL Extroacular Muscles: Present: EOMI Conjunctiva: Present: Normal Mouth: Present: Dry (slightly dry ) Neck: Present: Normal Range of Motion Respiratory/Chest: Present: Clear to Auscultation, Good Air Exchange, Other (No Upper Respiratory Infection ). No: Respiratory Distress, Accessory Muscle Use Cardiovascular: Present: Other (Systolic murmur ). No: Normal S1, S2 (Loud S2 sharp ) Abdomen: Present: Normal Bowel Sounds. No: Tenderness, Distention, Peritoneal Signs Back: Present: Normal Inspection Upper Extremity: Present: Normal Inspection. No: Cyanosis, Edema Lower Extremity: Present: Normal Inspection. No: Edema Neurological: Present: GCS=15, CN II-XII Intact, Speech Normal Skin: Present: Warm, Dry, Normal Color. No: Rashes Psychiatric: Present: Alert, Oriented x 3, Normal Insight, Normal Concentration Medical Decision Making ED Course and Treatment: 08/19/17 01:47 Impression: 42 year old female presents to the Emergency department for fever, chills, generalized body ache and cough. Plan: -- Labs -- Tylenol -- Chest X-ray -- Reassess and disposition Progress Notes: 08/19/17 02:38 Chest X-ray reviewed by radiologist, shows mild cardiomegaly, otherwise no infiltrate. - Lab Interpretations Lab Results: 08/19/17 01:35 08/19/17 01:35 Lab Results 08/19/17 01:35: Sodium 140, Potassium 4.3, Chloride 106, Carbon Dioxide 23, Anion Gap 15, BUN 10, Creatinine 0.8, Est GFR ( Amer) > 60, Est GFR (Non- Af Amer) > 60, Random Glucose 120 H, Calcium 9.9, Total Bilirubin 0.4, AST 25, ALT 31, Alkaline Phosphatase 60, Total Protein 7.5, Albumin 3.9, Globulin 3.5, Albumin/Globulin Ratio 1.1 08/19/17 01:35: WBC 7.4, RBC 4.29, Hgb 12.2, Hct 37.3, MCV 86.9, MCH 28.4, MCHC 32.7, RDW 15.6 H, Plt Count 202, MPV 9.7, Gran % 88.3 H, Lymph % (Auto) 5.7 L, [facility] % (Auto) 6.0, Eos % (Auto) 0.0 L, Baso % (Auto) 0.0, Gran # 6.50, Lymph # 0.4 L, [facility] # 0.4, Eos # 0.0, Baso # 0.00 - RAD Interpretation Radiology Orders: 08/19/17 01:41 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 Yes Sleep Is patient sleeping during reassessment? No Presence of Pain Presence of Pain Yes Pain Scale Used Pain Scale Used Numeric Location Pain Location Body Site Chest Description Intermittent Intensity 4 Scale Used Numeric Pain Behavior Irritability Aggravating Factors None Alleviating Factors Medication Sodium Chloride (Sodium Chloride 0.9%) 500 mls @ 999 mls/hr IV .Q31M STA Stop: 08/19/17 02:50 Last Admin: 08/19/17 02:31 Dose: 999 mls/hr eMAR Start Stop Document 08/19/17 02:31 AB (Rec: 08/19/17 02:31 AB [id number]) Intravenous Solution Start Date 08/19/17 Start Time 02:31 End Date 08/19/17 End time 03:31 Total Infusion Time 60 - Scribe Statement The provider has reviewed the documentation as recorded by the Maryibe Radha Hess. All medical record entries made by the Maryibbreanna were at my direction and personally dictated by me. I have reviewed the chart and agree that the record accurately reflects my personal performance of the history, physical exam, medical decision making, and the department course for this patient. I have also personally directed, reviewed, and agree with the discharge instructions and disposition. Disposition/Present on Arrival - Present on Arrival Any Indicators Present on Arrival: No History of DVT/PE: No History of Uncontrolled Diabetes: No Urinary Catheter: No History of Decub. Ulcer: No History Surgical Site Infection Following: CABG - Mediastinitis - Disposition Have Diagnosis and Disposition been Completed?: Yes Diagnosis: Influenza Disposition: HOME/ ROUTINE Disposition Time: 03:00 Patient Plan: Discharge Condition: IMPROVED Additional Instructions: Tylenol 650mg every 4 hours. Prescriptions: Oseltamivir Phosphate [Tamiflu] 75 mg PO BID #10 capsule Promethazine DM [Phenergan DM Syrup] 10 ml PO TID PRN #120 ml PRN Reason: Cough And Congestion Forms: [facility] (French)
[2017-08-19] MEDS ORDERED: Sodium Chloride 0.9% 500 ML IV STA (02:20)
[2017-08-19 02:28] LABS: GRAN # 6.5 (1.4-6.5); GRAN % 88.3 % (50.0-68.0); HEMOGLOBIN 12.2 g/dL (12.0-16.0); LYMPH # 0.4 (1.2-3.4); LYMPH % 5.7 % (22.0-35.0); MEAN CELL VOLUME 86.9 fl (80.0-105.0); MEAN CORPUSCULAR HEMOGLOBIN 28.4 pg (25.0-35.0); MEAN CORPUSCULAR HGB CONC 32.7 g/dl (31.0-37.0); MEAN PLATELET VOLUME 9.7 fl (7.0-11.0); MONO # 0.4 (0.1-0.6); RBC 4.29 10^6/uL (3.5-6.1); RED CELL DISTRIBUTION WIDTH 15.6 % (11.5-14.5); WHITE BLOOD COUNT 7.4 10^3/ul (4.5-11.0)
[2017-08-19 02:31] LABS: ALB/GLOB RATIO 1.1 (1.1-1.8); ALBUMIN 3.9 g/dL (3.0-4.8); ALT/SGPT 31 U/L (7-56); AST/SGOT 25 U/L (14-36); BLOOD UREA NITROGEN 10 mg/dL (7-21); CALCIUM 9.9 mg/dL (8.4-10.5); GFR AFRICAN-AMERICAN > 60; GFR NON-AFRICAN AMERICAN > 60
[2017-08-19 05:10] VITALS: BP 138/73; PULSE 70; RESP 16; TEMP 98.4; O2SAT 100
--- NOTE | 2017-08-19 08:36 | RAD ---
HISTORY: fever COMPARISON: 12/07/2016 FINDINGS: LUNGS: The lungs are well inflated. There is mild pulmonary venous congestion. No focal consolidation. PLEURA: No significant pleural effusion identified, no pneumothorax apparent. CARDIOVASCULAR: There is persistent mild cardiomegaly. Status post CABG and prostatic valve replacement. OSSEOUS STRUCTURES: No significant abnormalities. VISUALIZED UPPER ABDOMEN: Normal. OTHER FINDINGS: None. IMPRESSION: Persistent cardiomegaly and pulmonary venous congestion. No focal consolidation
== END 2017-08-19 03:01 | disposition home or self-care (01) ==
LOC: ED 01:22
DX: J11.1 Influenza due to unidentified influenza virus with other respiratory manifestations (principal); I10 Essential (primary) hypertension; Z87.891 Personal history of nicotine dependence
CPT/HCPCS: 71045; 80053; 85025; 96360; 99284; J7040

== ENCOUNTER 2017-08-20 13:30 | Observation (INO) | payer OTHER, MEDICARE ==
[2017-08-20 13:42] VITALS: BMI 27.1
--- NOTE | 2017-08-20 15:37 | ED PDOC ---
Arrival/HPI - General Chief Complaint: Female Genitourinary Time Seen by Provider: 08/20/17 13:41 - History of Present Illness Narrative History of Present Illness (Text): ou were treated in the ED today for history of pulmonary valve replacement, hidradenitis which you have left armpit drainage and for which she takes amoxacillin and is compliant, who was seen yesterday for fever, chills, dry cough, chest xray done with vascular congestion and started on tamiflu but now with persistent symptoms today which have been unchanged otherwise without any nausea/vomiting/headache/dizziness/difficulty breathing/chest pain/abdomen pain/ numbness/tingling/loss of limb function/pain with urination/travel/prior blood clots/prior cancer/hormonal treatments. 08/20/17 15:44 Past Medical History - Infectious Disease Hx of Infectious Diseases: None - Tetanus Immunization Tetanus Immunization: Unknown - Cardiac Hx Hypertension: Yes Hx Pacemaker: No Other/Comment: Pulmonary Stenosis. Artifical pulmonary artery - Pulmonary Hx Respiratory Disorders: No Hx Pneumonia: Yes - Neurological Hx Neurological Disorder: No - HEENT Hx HEENT Disorder: No - Renal Hx Renal Disorder: No - Endocrine/Metabolic Hx Endocrine Disorders: No - Hematological/Oncological Hx Cancer: No - Integumentary Hx Dermatological Disorder: No Other/Comment: POOR HEALING OF SURGICAL WOUND. - Musculoskeletal/Rheumatological Hx Musculoskeletal Disorders: No - Gastrointestinal Hx Gastrointestinal Disorders: No - Genitourinary/Gynecological Hx Genitourinary Disorders: No - Psychiatric Hx Psychophysiologic Disorder: No Hx Substance Use: Yes (marijuana) - Surgical History Hx Section: Yes (x2) Hx Mastectomy: No - Anesthesia Hx Anesthesia: Yes Hx Anesthesia Reactions: No Hx Malignant Hyperthermia: No Family/Social History Family/Social History: No Known Family HX Smoking Status: Former Smoker Hx Alcohol Use: No Hx Substance Use: Yes (marijuana) Allergies/Home Meds Allergies/Adverse Reactions: Allergies dopamine Allergy (Verified 08/19/17 02:33) hives Home Medications: Home Meds Medication Instructions Recorded Confirmed Amoxicillin/Clavulanate [Augmentin 1 tab PO TID 08/19/17 08/20/17 875 MG-125 MG] cloNIDine [clonidine HCl] 0.2 mg PO BID 08/19/17 08/20/17 Physical Exam Vital Signs Reviewed: Yes Vital Signs Temp Pulse Resp BP Pulse Ox 08/20/17 19:12 98.0 F 72 18 152/113 H 99 08/20/17 18:20 77 18 152/96 H 98 08/20/17 17:01 100.8 F H 86 18 144/108 H 100 08/20/17 13:52 190/94 H 08/20/17 13:49 102.2 F H 89 18 195/99 H 96 Temperature: Febrile Blood Pressure: Hypertensive Pulse: Regular Respiratory Rate: Normal Appearance: Positive for: Ill-Appearing Pain Distress: None Mental Status: Positive for: Alert and Oriented X 3 - Systems Exam Head: Present: Atraumatic, Normocephalic Pupils: Present: PERRL Extroacular Muscles: Present: EOMI Conjunctiva: Present: Normal Ears: Present: Normal Mouth: Present: Moist Mucous Membranes Pharnyx: Present: Normal Nose (External): Present: Atraumatic Nose (Internal): Present: Normal Inspection Neck: Present: Normal Range of Motion Respiratory/Chest: Present: Clear to Auscultation, Good Air Exchange Cardiovascular: Present: Regular Rate and Rhythm Abdomen: No: Tenderness, Distention, Normal Bowel Sounds, Peritoneal Signs, Rebound, Guarding, McBurney's Point Tender, Rovsing's Sign Present, Hernias, Feeding Tubes, Ostomy Tubes, Mass/Organomegaly, Scars, Other Back: Present: Normal Inspection Upper Extremity: Present: Normal Inspection Lower Extremity: Present: Normal Inspection Neurological: Present: GCS=15, CN II-XII Intact, Speech Normal, Motor Func Grossly Intact Skin: Present: Warm, Normal Color, Other (except for left armpit draining area of firmness without fluctuance) Psychiatric: Present: Alert, Oriented x 3, Normal Insight, Normal Concentration Medical Decision Making ED Course and Treatment: you were treated in the ED today for history of pulmonary valve replacement, hidradenitis which you have left armpit drainage and for which she takes amoxacillin and is compliant, who was seen yesterday for diarrhea which is related to antibiotics use and change in intestinal bacteria dez, fever, chills, dry cough, chest xray done with vascular congestion and started on tamiflu but now with persistent symptoms today which have been unchanged otherwise without any nausea/vomiting/headache/dizziness/difficulty breathing/ chest pain/abdomen pain/numbness/tingling/loss of limb function/pain with urination/travel/prior blood clots/prior cancer/hormonal treatments. You were otherwise breathing easily, smiling with your daughters, good strength/sensation , walking easily, clear lungs, no abdomen tenderness, except for left armpit draining area of firmness without fluctuance, fever temp 102 with improvement 100.8, stable heart rate 89, stable breathing rate 18, excellent oxygen level 96 % room air, elevated blood pressure 195/99 which we recommend repeat in 2-3 days primary care office to determine further treatment, you have blood tests no infection count 4.2, stable blood level hemoglobin 13/platelets 184, stable chemistry, liver AST mildly elevated 49 which we recommend followup primary care 2-3 days with referral to gastroenterology clinic to ensure no complications, magnesium mildly low 1.6 which was replaced, heart blood test normal 0.02, urine test no acute sign of infection with 100protein and recommend followup primary care 2-3 days with referral urology clinic to ensure no complications, urine test negative, ECG similar to prior, chest xray no consolidation with with good inflation but possible mild venous congestion (08/19/17), intravenous fluids/observation done in the ED with improvement, counselled to continue warm compresses to the left armpit drainage area, had long discussion with you regarding consideration to stay in the hospital and you stated you felt fatigued.. 08/20/17 15:33 08/20/17 15:43 08/20/17 17:48 08/20/17 17:50 08/20/17 17:52 08/20/17 17:55 08/20/17 20:58 ivf, tylenol, motrin, augmentin. d/w dr. thompson who stated can admit, consult dr. james surgery for left armpit hidradenitis. - Lab Interpretations Lab Results: 08/20/17 16:05 08/20/17 16:05 Lab Results 08/20/17 16:05: Influenza Typ A,B (EIA) Negative for flu a/b 08/20/17 16:05: Sodium 140, Potassium 3.9, Chloride 103, Carbon Dioxide 25, Anion Gap 15, BUN 10, Creatinine 0.8, Est GFR ( Amer) > 60, Est GFR (Non- Af Amer) > 60, Random Glucose 85, Calcium 9.3, Magnesium 1.6 L, Total Bilirubin 0.5, AST 49 H D, ALT 34, Alkaline Phosphatase 73, Lactate Dehydrogenase 835 H, Total Creatine Kinase 542 H, CK-MB (CK-2) 0.4, CK-MB (CK-2) % Cancelled, Troponin I 0.02 D, NT-Pro-B Natriuret Pep 134, Total Protein 8.0, Albumin 4.2, Globulin 3.9, Albumin/Globulin Ratio 1.1 08/20/17 16:05: Urine Color Yellow, Urine Appearance Clear, Urine pH 6.0, Ur Specific [place] >= 1.030, Urine Protein 100 H, Urine Glucose (UA) Negative, Urine Ketones >=80, Urine Blood Trace-intact H, Urine Nitrate Negative, Urine Bilirubin Negative, Urine Urobilinogen 0.2, Ur Leukocyte Esterase Negative, Urine RBC 0 - 2, Urine WBC 1 - 3, Ur Epithelial Cells 1 - 3, Urine Bacteria Neg 08/20/17 16:05: PT 15.1 H, INR 1.32 H, APTT 33.7 08/20/17 16:05: WBC 4.2 L D, RBC 4.74, Hgb 13.6, Hct 41.0, MCV 86.5, MCH 28.7, MCHC 33.2, RDW 15.6 H, Plt Count 184, MPV 10.3, Gran % 73.1 H, Lymph % (Auto) 16.3 L, [place] % (Auto) 10.6 H, Eos % (Auto) 0.0 L, Baso % (Auto) 0.0, Gran # 3.04 , Lymph # 0.7 L, [place] # 0.4, Eos # 0.0, Baso # 0.00 - EKG Interpretation Interpreted by ED Physician: Yes (SR with flipped t waves avr, v1, v2) Type: 12 lead EKG Comparison: Similar to previous EKG (04/13/17) - Medication Orders Current Medication Orders: Lactated Ringer's (Lactated Ringer's) 1,000 mls @ 1,000 mls/hr IV .Q1H SARITA Last Admin: 08/20/17 18:01 Dose: 1,000 mls/hr eMAR Start Stop Document 08/20/17 18:01 EQ (Rec: 08/20/17 18:01 EQ [facility] [id number]) Intravenous Solution Start Date 08/20/17 Start Time 18:01 Discontinued Medications Acetaminophen (Tylenol 325mg Tab) 975 mg PO STAT STA Stop: 08/20/17 15:07 Last Admin: 08/20/17 15:59 Dose: 975 mg MAR Pain/Vitals Document 08/20/17 15:59 EQ (Rec: 08/20/17 16:00 EQ [facility] [id number]) Pain Reassessment Is This A Pain ReAssessment? No Sleep Is patient sleeping during reassessment? No Presence of Pain Presence of Pain Yes Pain Scale Used Pain Scale Used Numeric Amoxicillin/Clavulanate Potassium (Augmentin 875 Mg-125 Mg Tab) 1 tab PO STAT STA PRN Reason: Protocol Stop: 08/20/17 20:55 Clonidine HCl (Catapres) 0.2 mg PO STAT STA Stop: 08/20/17 20:11 Magnesium Sulfate/Dextrose (Magnesium Sulfate 1 Gm/100 Ml D5w) 1 gm in 100 mls @ 100 mls/hr IVPB ONCE ONE Stop: 08/20/17 18:17 Last Admin: 08/20/17 18:00 Dose: 100 mls/hr eMAR Start Stop Document 08/20/17 18:00 EQ (Rec: 08/20/17 18:00 EQ [facility] [id number]) Intravenous Solution Start Date 08/20/17 Start Time 18:00 Ibuprofen (Motrin Tab) 800 mg PO STAT STA Stop: 08/20/17 18:02 Last Admin: 08/20/17 18:15 Dose: 800 mg MAR Pain/Vitals Document 08/20/17 18:15 EQ (Rec: 08/20/17 18:15 EQ [facility] [id number]) Pain Reassessment Is This A Pain ReAssessment? No Sleep Is patient sleeping during reassessment? No Presence of Pain Presence of Pain Yes Disposition/Present on Arrival - Present on Arrival Any Indicators Present on Arrival: No History of DVT/PE: No History of Uncontrolled Diabetes: No Urinary Catheter: No History of Decub. Ulcer: No History Surgical Site Infection Following: CABG - Mediastinitis - Disposition Have Diagnosis and Disposition been Completed?: Yes Diagnosis: Gastroenteritis, Hidradenitis axillaris Disposition: HOSPITALIZED Disposition Time: 21:00 Patient Plan: Admission, Discharge Patient Problems: Current Active Problems Problem Status Onset Gastroenteritis Acute Hidradenitis axillaris Acute Condition: STABLE Forms: [employer] ([place])
[2017-08-20 16:20] LABS: GRAN # 3.04 (1.4-6.5); GRAN % 73.1 % (50.0-68.0); HEMOGLOBIN 13.6 g/dL (12.0-16.0); LYMPH # 0.7 (1.2-3.4); LYMPH % 16.3 % (22.0-35.0); MEAN CELL VOLUME 86.5 fl (80.0-105.0); MEAN CORPUSCULAR HEMOGLOBIN 28.7 pg (25.0-35.0); MEAN CORPUSCULAR HGB CONC 33.2 g/dl (31.0-37.0); MEAN PLATELET VOLUME 10.3 fl (7.0-11.0); MONO # 0.4 (0.1-0.6); MONO % 10.6 % (1.0-6.0); RBC 4.74 [, 10^6/uL] (3.5-6.1); RED CELL DISTRIBUTION WIDTH 15.6 % (11.5-14.5); WHITE BLOOD COUNT 4.2 [, 10^3/ul] (4.5-11.0)
[2017-08-20 16:35] LABS: URINE BILIRUBIN NEGATIVE (NEGATIVE); URINE BLOOD TRACE-INTACT (NEGATIVE); URINE GLUCOSE (UA) NEGATIVE (NEGATIVE); URINE LEUKOCYTE ESTERASE NEGATIVE Leu/uL (NEGATIVE); URINE NITRATE NEGATIVE (NEGATIVE); URINE PROTEIN 100 mg/dL (<30 mg/dL); URINE UROBILINOGEN 0.2 E.U./dL (<1 E.U./dL)
[2017-08-20 16:36] LABS: ALB/GLOB RATIO 1.1 (1.1-1.8); ALBUMIN 4.2 g/dL (3.0-4.8); ALT/SGPT 34 U/L (7-56); AST/SGOT 49 U/L (14-36); BLOOD UREA NITROGEN 10 mg/dL (7-21); CALCIUM 9.3 mg/dL (8.4-10.5); GFR AFRICAN-AMERICAN > 60; GFR NON-AFRICAN AMERICAN > 60; MAGNESIUM 1.6 mg/dL (1.7-2.2)
[2017-08-20 16:39] LABS: URINE APPEARANCE CLEAR (CLEAR); URINE COLOR YELLOW (YELLOW)
[2017-08-20 16:46] LABS: B-TYPE NATRIURETIC PEPTIDE 134 pg/mL (0-450); TROPONIN I 0.02 ng/mL
[2017-08-20 16:57] LABS: CK-MB 0.4 ng/mL (0.0-3.6)
[2017-08-20 17:02] LABS: URINE BACTERIA NEG (NEG); URINE RBC 0 - 2 /hpf (0-2)
[2017-08-20 17:06] LABS: PROTHROMBIN TIME 15.1 SECONDS (9.4-12.5)
[2017-08-20 17:07] LABS: INR 1.32 (0.93-1.08); PARTIAL THROMBOPLASTIN TIME 33.7 Seconds (25.1-36.5)
[2017-08-20] MEDS ORDERED: Magnesium Sulfate 1 gm in D5W 1 GM/100 ML BAG IVPB ONE (17:18)
[2017-08-20] MEDS: Lactated Ringer's 1,000 ML IV SCH (18:01)
[2017-08-20] MEDS ORDERED: Amoxicillin-Clav 875-125 mg Tab PO STA (20:54)
[2017-08-20] MEDS ORDERED: cefTRIAXone 1 gm 1 GM/100 ML BAG IVPB STA (22:32)
[2017-08-20] MEDS ORDERED: Sodium Chloride 0.9% 1,000 ML IV STA (22:36)
[2017-08-20] MEDS: cefTRIAXone 1 gm 1 GM/100 ML BAG IVPB SCH (23:05)
--- NOTE | 2017-08-20 23:43 | CP.PCM.CON ---
<Vadim Nascimento - Last Filed: 08/21/17 00:32> History of Present Illness - History of Present Illness History of Present Illness: General Surgery Consult note- Dr. Drake 42F well known to the surgical service w/ significant PMHx of HTN, congenital heart defect, recurrent right breast abscess, bilateral axillary hidradenitis comes into the ED for watery diarrhea and trouble urinating for 2 days. Patient is on chronic amoxicillin for hydradinitis. she stopped taking it two days ago when she started to notice the non-bloody stool. Denies recent sick contacts. Surgery was consulted for hidradenitis. Left axillay w/ small active purulent discharge. subjective fevers at this time. Denies: GONCALVES, chills, shortness of breath, nausea, vomiting, changes in vision, numbness and tingling in extremities PMH: HTN, congenital heart defect, recurrent right breast abscess, hidradentitis suppurativa PSH: I&D of right breast abscess x2, B/L axilla I&D (multiple), open pulmonic valve replacement x2, , R partial mastectomy SH: Denies alcohol, tobacco or illicit drug use. All: Dopamine Review of Systems - Review of Systems All systems: reviewed and no additional remarkable complaints except - Constitutional Constitutional: As Per HPI Past Patient History - Infectious Disease Hx of Infectious Diseases: None - Tetanus Immunizations Tetanus Immunization: Unknown - Past Social History Smoking Status: Former Smoker - CARDIAC Hx Hypertension: Yes Hx Pacemaker: No Other/Comment: Pulmonary Stenosis. Artifical pulmonary artery - PULMONARY Hx Respiratory Disorders: No Hx Pneumonia: Yes - NEUROLOGICAL Hx Neurological Disorder: No - HEENT Hx HEENT Problems: No - RENAL Hx Chronic Kidney Disease: No - ENDOCRINE/METABOLIC Hx Endocrine Disorders: No - HEMATOLOGICAL/ONCOLOGICAL Hx Cancer: No - INTEGUMENTARY Hx Dermatological Problems: No Other/Comment: POOR HEALING OF SURGICAL WOUND. - MUSCULOSKELETAL/RHEUMATOLOGICAL Hx Musculoskeletal Disorders: No - GASTROINTESTINAL Hx Gastrointestinal Disorders: No - GENITOURINARY/GYNECOLOGICAL Hx Genitourinary Disorders: No - PSYCHIATRIC Hx Psychophysiologic Disorder: No Hx Substance Use: Yes (marijuana) - SURGICAL HISTORY Hx Section: Yes (x2) Hx Mastectomy: No - ANESTHESIA Hx Anesthesia: Yes Hx Anesthesia Reactions: No Hx Malignant Hyperthermia: No Meds Allergies/Adverse Reactions: Allergies Allergy/AdvReac Type Severity Reaction Status Date / Time dopamine Allergy hives Verified 08/19/17 02:33 - Medications Medications: Current Medications Clonidine HCl (Catapres) 0.2 mg PO BID SARITA Lactated Ringer's (Lactated Ringer's) 1,000 mls @ 1,000 mls/hr IV .Q1H SARITA Last Admin: 08/20/17 18:01 Dose: 1,000 mls/hr Ceftriaxone Sodium (Rocephin 1 Gram Ivpb) 1 gm in 100 mls @ 100 mls/hr IVPB DAILY SARITA PRN Reason: Protocol Stop: 08/22/17 23:59 Last Admin: 08/20/17 23:05 Dose: 100 mls/hr Sodium Chloride (Sodium Chloride 0.9%) 1,000 mls @ 999 mls/hr IV .Q1H1M STA Stop: 08/20/17 23:36 Last Admin: 08/20/17 23:05 Dose: 999 mls/hr Physical Exam - Constitutional Appears: Non-toxic, No Acute Distress - Head Exam Head Exam: ATRAUMATIC - Eye Exam Eye Exam: EOMI. absent: Scleral icterus - Respiratory Exam Respiratory Exam: NORMAL BREATHING PATTERN. absent: Accessory Muscle Use, Respiratory Distress - Cardiovascular Exam Cardiovascular Exam: +S1, +S2. absent: Bradycardia, Tachycardia - GI/Abdominal Exam GI & Abdominal Exam: Soft. absent: Distended, Firm, Guarding, Rigid, Tenderness - Extremities Exam Additional comments: Bilateral upper extremity hidradintitis. Actively draining purulent fluid from left axilla. able to express some purulent drainage during exam - Neurological Exam Neurological exam: Alert, Oriented x3 - Skin Skin Exam: Mottled, Warm Results - Vital Signs Recent Vital Signs: Last Vital Signs Temp 98.0 F 08/20/17 19:12 Pulse 71 08/20/17 23:12 Resp 18 08/20/17 23:12 BP 148/84 08/20/17 23:12 Pulse Ox 100 08/20/17 23:12 - Labs Result Diagrams: 08/20/17 16:05 08/20/17 16:05 Assessment & Plan - Assessment and Plan (Free Text) Assessment: 42F w/ gastroenteritis r/o C.Diff; surgery consulted for bilateral upper extremity hidradinitis Plan: - aggressive fluid rehydration - warm compresses bilateral axilla q2h - follow up stool culture and C.Diff toxin - pain control PRN - NPO except ice chips - no plans for acute surgical intervention at this time - blood pressure control - further recs per Dr. Drake surgical attending Vadim Nascimento PGY1 <Carlitos Drake - Last Filed: 08/21/17 17:05> Meds - Medications Medications: Current Medications Clonidine HCl (Catapres) 0.2 mg PO Q8 [facility] Last Admin: 08/21/17 15:25 Dose: 0.2 mg Lactated Ringer's (Lactated Ringer's) 1,000 mls @ 1,000 mls/hr IV .Q1H [facility] Last Admin: 08/21/17 10:13 Dose: 1,000 mls/hr Ceftriaxone Sodium (Rocephin 1 Gram Ivpb) 1 gm in 100 mls @ 100 mls/hr IVPB DAILY [facility] PRN Reason: Protocol Stop: 08/22/17 23:59 Last Admin: 08/21/17 10:17 Dose: 100 mls/hr Lactated Ringer's (Lactated Ringer's) 1,000 mls @ 125 mls/hr IV .Q8H [facility] Ondansetron HCl (Zofran Inj) 4 mg IVP Q4H PRN PRN Reason: Nausea/Vomiting Ondansetron HCl (Zofran Inj) 4 mg IVP Q6H PRN PRN Reason: Nausea/Vomiting Pantoprazole Sodium (Protonix Inj) 40 mg IVP DAILY [facility] Last Admin: 08/21/17 15:24 Dose: 40 mg Results - Vital Signs Recent Vital Signs: Last Vital Signs Temp 97.7 F 08/21/17 07:30 Pulse 66 08/21/17 15:25 Resp 18 08/21/17 07:30 BP 160/82 H 08/21/17 15:25 Pulse Ox 99 08/21/17 07:30 - Labs Result Diagrams: 08/21/17 06:15 08/21/17 06:15 Labs: Laboratory Results - last 24 hr 08/21/17 08/21/17 06:15 06:15 WBC 4.3 L RBC 4.64 Hgb 13.0 Hct 40.2 MCV 86.6 MCH 28.0 MCHC 32.3 RDW 16.0 H Plt Count 171 MPV 9.9 Gran % 68.6 H Lymph % (Auto) 21.4 L [place] % (Auto) 9.6 H Eos % (Auto) 0.2 L Baso % (Auto) 0.2 Gran # 2.94 Lymph # 0.9 L [place] # 0.4 Eos # 0.0 Baso # 0.01 Sodium 139 Potassium 3.7 Chloride 108 H Carbon Dioxide 22 Anion Gap 13 BUN 11 Creatinine 0.7 Est GFR ( Amer) > 60 Est GFR (Non-Af Amer) > 60 Random Glucose 78 Calcium 8.5 Total Bilirubin 0.3 AST 47 H ALT 30 Alkaline Phosphatase 62 Total Protein 6.8 Albumin 3.4 Globulin 3.4 Albumin/Globulin Ratio 1.0 L Assessment & Plan - Assessment and Plan (Free Text) Assessment: Dx: Abscess Left Axillae/HTCAD(Uncontrolled) Ayo C/S-progress to oral Ab--Interval Wide Excision Left Axillar post discharge Better control BP This consult done under my direct supervision Doroteo Drake MD FACS
[2017-08-20] MEDS ORDERED: Lactated Ringer's 1,000 ML IV SCH (23:45)
[2017-08-21 02:45] VITALS: TEMP 97.7
[2017-08-21 07:29] LABS: BASO # 0.01 [, K/mm3] (0.0-2.0); BASO % 0.2 % (0.0-3.0); EOS % 0.2 % (1.5-5.0); GRAN # 2.94 (1.4-6.5); GRAN % 68.6 % (50.0-68.0); LYMPH # 0.9 (1.2-3.4); LYMPH % 21.4 % (22.0-35.0); MEAN CELL VOLUME 86.6 fl (80.0-105.0); MEAN CORPUSCULAR HGB CONC 32.3 g/dl (31.0-37.0); MEAN PLATELET VOLUME 9.9 fl (7.0-11.0); MONO # 0.4 (0.1-0.6); MONO % 9.6 % (1.0-6.0); RBC 4.64 [, 10^6/uL] (3.5-6.1); WHITE BLOOD COUNT 4.3 [, 10^3/ul] (4.5-11.0)
[2017-08-21 07:55] LABS: ALBUMIN 3.4 g/dL (3.0-4.8); ALT/SGPT 30 U/L (7-56); AST/SGOT 47 U/L (14-36); BLOOD UREA NITROGEN 11 mg/dL (7-21); CALCIUM 8.5 mg/dL (8.4-10.5); GFR AFRICAN-AMERICAN > 60; GFR NON-AFRICAN AMERICAN > 60
[2017-08-21 09:12] VITALS: RESP 18; O2SAT 99
--- NOTE | 2017-08-21 10:05 | CARD ---
APPROVED REPORT EKG Measurement Heart [id number] <Conclusion> Sinus rhythm with APC Biatrial enlargement PRWP Anteroseptal infarct, old LAD No change
[2017-08-21] MEDS: Lactated Ringer's 1,000 ML IV SCH (10:13)
[2017-08-21] MEDS: cefTRIAXone 1 gm 1 GM/100 ML BAG IVPB SCH (10:17)
--- NOTE | 2017-08-21 14:37 | CP.PCM.PCO ---
Physician Communication Note - Physician Communication Note Physician Communication Note: No plans for acute surgical intervention Assessment & Plan - Assessment and Plan (Free Text) Assessment: 42yo F with Bilateral axillary hidradenitis - No plans for any acute surgical intervention - Cleared for discharge from surgical standpoint on Topical Bactroban and PO Abx - F/u with Dr. Drake in 2 weeks. Call for appointment. Further recs as per Dr. Vidal Orona PGY1 surgery pager:[phone]
[2017-08-21 15:28] VITALS: BP 160/82; PULSE 66
[2017-08-21] MEDS ORDERED: Pneumococcal 23-Valent Vaccine IM ONE (16:47)
--- NOTE | 2017-08-22 01:08 | HP ---
HISTORY OF PRESENT ILLNESS: She comes to the Emergency Room with a underarm hidradenitis suppurativa, which was treated on outpatient with Augmentin this past few days and it got worse, swollen and it opened up and pus was coming out. She has been having a fever and chills and was sent to the Emergency Room. She was not feeling well, has no appetite. She was also started on Tamiflu for the flu on the outpatient. She is very uncomfortable. She is a 42-year-old female who is just not improving. PAST MEDICAL HISTORY: Hypertension, pulmonary stenosis, artificial pulmonary artery, pneumonia, poor healing of surgical wound with keloid from another surgical procedure of her hidradenitis suppurativa. SOCIAL HISTORY: Former smoker of cigarettes. No alcohol, but just smokes marijuana. PAST SURGICAL HISTORY: She had two C-sections. FAMILY HISTORY: No family history that she knows of. ALLERGIES: SHE IS ALLERGIC TO DOPAMINE. MEDICATIONS: She is Augmentin and clonidine for the blood pressure, which has been high. PHYSICAL EXAMINATION GENERAL: She is ill appearing. She does not look good. She does not feel well. She feels nauseous and does not have a much of an appetite. Alert and oriented x3. VITAL SIGNS: She has 102.2 temperature, 89 pulse, 18 respiratory rate, 152/113 blood pressure and 100% O2 saturation. HEENT: Head atraumatic and normocephalic. Extraocular muscles are intact. Pupils are reactive to light and accommodation. Throat is moist. NECK: Supple. HEART: Regular rate. LUNGS: Clear to auscultation. ABDOMEN: Soft and nontender. Positive bowel sounds. No guarding. No rebound. No CVA tenderness. EXTREMITIES: Shows no edema. Under both underarms there is swelling, the left is worse than the right as we can see pus and redness on the left. NEUROLOGIC: GCS is 50. Cranial nerves II through XII are grossly intact. Speech is normal. Alert and oriented x3. LYMPH NODES: Thyroid midline. No palpable appreciable lymphadenopathy appreciated. LABORATORY DATA: She had multiple tests. She only has 4.3 white count, 13 hemoglobin, 40.2 hematocrit with 171 platelets. INR is 1.32. She has 139 sodium, potassium 3.7, BUN 11, creatinine 0.7, GFR is greater than 60, sugar is 78, calcium is 8.5, total bili is 0.3, AST is 47, ALT is 30 and alk phos 62. Troponin I 0.02. BNP is 134. Total protein 6.8. Urine is negative. Serology for influenza is negative. She has consults for surgery and GI. She is currently on Catapres, Lactated Ringer's and Rocephin. She is here for hidradenitis suppurativa with abscess on both underarms, surgery. She is not feeling well and hopefully, will improve with antibiotics. We will check her labs tomorrow. I cannot see her coming out of the hospital today, she is still on observation. She failed outpatient treatment for this. Philippe Wick DO MTDD
== END 2017-08-21 18:10 | disposition home or self-care (01) ==
LOC: ED 13:30 → ERH 20:55 → 5RSO 23:38
PROVIDERS: ADMIT Family Medicine; ATTEND Family Medicine
DX: L73.2 Hidradenitis suppurativa (principal); L02.412 Cutaneous abscess of left axilla; L02.411 Cutaneous abscess of right axilla; K52.9 Noninfective gastroenteritis and colitis, unspecified; I10 Essential (primary) hypertension; L91.0 Hypertrophic scar; Z87.891 Personal history of nicotine dependence; Z87.01 Personal history of pneumonia (recurrent); Z87.74 Personal history of (corrected) congenital malformations of heart and circulatory system; Z23 Encounter for immunization
CPT/HCPCS: 36415; 80053; 81001; 82550; 82553; 83615; 83735; 83880; 84484; 85025; 85610; 85730; 87070; 87804; 90471; 90732; 93005; 99285; C9113; G0378; J0696; J3475; J7040; J7120

== ENCOUNTER 2018-07-23 21:51 | Emergency (ER) | payer MEDICARE, OTHER ==
[2018-07-23 22:14] VITALS: BMI 27.1
[2018-07-23 22:17] VITALS: RESP 18
[2018-07-23 22:24] VITALS: TEMP 98.7
--- NOTE | 2018-07-23 23:19 | ED PDOC ---
Arrival/HPI - General Chief Complaint: High Blood Pressure Time Seen by Provider: 07/23/18 22:23 Historian: Patient - History of Present Illness Narrative History of Present Illness (Text): 07/23/18 23:13 A 43 year old female, whose past medical history includes HTN, congenital heart defect, recurrent right breast abscess, bilateral axillary hidradenitis, presents to the emergency department with a complaint of high blood pressure and bilateral ear pressure. Patient notes that she felt the ear pressure at around 6 PM today and checked her blood pressure. She reports the blood pressure increasing as she checked it this evening. She states that she doubled her medications for her high blood pressure but became concerned and decided to come get evaluated in the emergency department. She also notes that she feels increas ed pressure in both of her ears radiating towards her jaw. The patient notes hearing "crackles" in both ears. Patient reports cold symptoms last week that have resolved, but notes that she still has a mild cough. The patient denies any fever, chills, chest pain, shortness of breath, abdominal pain, nausea, vomiting, diarrhea, urinary symptoms, back pain, neck pain, headache, dizziness, or any other complaints. PMD: Dr. Yuli Drake Cardiology: Dr. Avila Time/Duration: 4-6 hours Symptom Onset: Sudden Symptom Course: Unchanged Activities at Onset: Rest, Light Context: Home, Other ([facility]) Past Medical History - Provider Review Nursing Documentation Reviewed: Yes - Infectious Disease Hx of Infectious Diseases: None - Tetanus Immunization Tetanus Immunization: Unknown - Cardiac Hx Hypertension: Yes Other/Comment: open heart surgery. valve replacement - Pulmonary Hx Respiratory Disorders: No Hx Pneumonia: Yes - Neurological Hx Neurological Disorder: No - HEENT Hx HEENT Disorder: No - Renal Hx Renal Disorder: No - Endocrine/Metabolic Hx Endocrine Disorders: No - Hematological/Oncological Hx Cancer: No - Integumentary Hx Dermatological Disorder: No Other/Comment: POOR HEALING OF SURGICAL WOUND. - Musculoskeletal/Rheumatological Hx Musculoskeletal Disorders: No Hx Falls: No - Gastrointestinal Hx Gastrointestinal Disorders: No - Genitourinary/Gynecological Hx Genitourinary Disorders: No - Psychiatric Hx Psychophysiologic Disorder: No Hx Substance Use: Yes (Cannibus) - Surgical History Hx Mastectomy: No Hx Open Heart Surgery: Yes Hx Valve Replacement: Yes - Anesthesia Hx Anesthesia: Yes Hx Anesthesia Reactions: No Hx Malignant Hyperthermia: No Family/Social History - Physician Review Nursing Documentation Reviewed: Yes Family/Social History: No Known Family HX Smoking Status: Never Smoked Hx Alcohol Use: No Hx Substance Use: Yes (Cannibus) Allergies/Home Meds Allergies/Adverse Reactions: Allergies dopamine Allergy (Verified 08/19/17 02:33) hives Home Medications: Home Meds Medication Instructions Recorded Confirmed cloNIDine [Catapres] 0.2 mg PO BID 08/19/17 10/14/17 Ergocalciferol (Vitamin D2) 2,000 unit PO DAILY 10/14/17 10/14/17 [Vitamin D2] Furosemide [Lasix] 40 mg PO DAILY 10/14/17 10/14/17 Potassium Chloride [K-Dur 20] 20 meq PO DAILY 10/14/17 10/14/17 hydrALAZINE [hydralazine 25 mg PO DAILY 10/14/17 10/14/17 Hydrochloride] Review of Systems - Physician Review All systems were reviewed & negative as marked: Yes - Review of Systems Constitutional: absent: Fatigue, Weight Change, Fevers Eyes: absent: Vision Changes ENT: Other (Bilateral ear pressure). absent: Hearing Changes, Tinnitus, TMJ Pain, Voice Changes, Sore Throat, Rhinorrhea, Epistaxis, Sinus Congestion Respiratory: absent: SOB Cardiovascular: absent: Chest Pain Gastrointestinal: absent: Abdominal Pain, Diarrhea, Nausea, Vomiting Genitourinary Female: absent: Urine Output Changes Musculoskeletal: absent: Back Pain, Neck Pain Neurological: absent: Headache, Dizziness Physical Exam Vital Signs Reviewed: Yes Vital Signs Temp Pulse Resp BP Pulse Ox 07/23/18 22:16 98.7 F 88 18 137/102 H 98 Temperature: Afebrile Blood Pressure: Hypertensive Pulse: Regular Respiratory Rate: Normal Appearance: Positive for: Well-Appearing, Non-Toxic, Comfortable Pain Distress: None Mental Status: Positive for: Alert and Oriented X 3 - Systems Exam Head: Present: Atraumatic, Normocephalic Pupils: Present: PERRL Extroacular Muscles: Present: EOMI Conjunctiva: Present: Normal Ears: Present: Erythema (Erythematous TM- right ear.), Normal Canal. No: NORMAL TM (Erythematous TM- right ear. No mastoid pain or redness. ), TM Bulging, Fluid, TM Perf Mouth: Present: Moist Mucous Membranes Pharnyx: Present: Normal. No: ERYTHEMA, EXUDATE Nose (External): Present: Atraumatic. No: Abrasion Nose (Internal): Present: Normal Inspection Neck: Present: Normal Range of Motion. No: Meningeal Signs, MIDLINE TENDERNESS Respiratory/Chest: Present: Clear to Auscultation, Good Air Exchange. No: Respi ratory Distress, Accessory Muscle Use Cardiovascular: Present: Regular Rate and Rhythm, Normal S1, S2, Other (Sternotomy scar. Clean. Dry. No erythema. No crepitus. ). No: Murmurs Abdomen: No: Tenderness, Distention, Peritoneal Signs Back: Present: Normal Inspection. No: CVA Tenderness, Midline Tenderness Upper Extremity: Present: Normal Inspection. No: Cyanosis, Edema Lower Extremity: Present: Normal Inspection. No: Edema Neurological: Present: GCS=15, CN II-XII Intact, Speech Normal Skin: Present: Warm, Dry, Normal Color. No: Rashes Psychiatric: Present: Alert, Oriented x 3, Normal Insight, Normal Concentration Medical Decision Making ED Course and Treatment: Impression: A 43 year old female presents to the emergency department with a complaint of bilateral ear pressure and high blood pressure. On exam R TM erythematous, No mastoiditis. No meningeal signs. No sudden onset headache. Non-worst of life. No FND. No unilateral weakness. No chest pain or sob. No abdominal pain, constipation or diarrhea. No other complaints. Plan: -- Head CT -- Labs -- Reassess and disposition Prior Visits: Notes and results from previous visits were reviewed. Progress Notes: CT SCAN OF THE BRAIN WITHOUT IV CONTRAST Electronically signed on Jul 24, 2018 1:46:16 AM EST by: Justus Sanchez M.D., Certified by KULDEEP, MSK, Neuroradiology IMPRESSION: Normal unenhanced CT scan of the brain. Chronic sinusitis. Superimposed acute maxillary and sphenoid sinusitis. Bilateral chronic otomastoiditis. 07/24/18 02:19 No mastoid tenderness on exam No crepitus or erythema at mastoid area R TM erythematous. No purulent drainage or necrotic tissue noted. No sinus pressure on exam. No sinus complaints. labs otherwise largely unremarkable, mildly elevated WBC. No SIRS criteria improved pain, clear for d/c home, pt agreeable to plan. - Lab Interpretations I have reviewed the lab results: Yes - Scribe Statement The provider has reviewed the documentation as recorded by the Agnes Balderrama Provider Scribe Attestation: All medical record entries made by the Maryibbreanna were at my direction and personally dictated by me. I have reviewed the chart and agree that the record accurately reflects my personal performance of the history, physical exam, medical decision making, and the department course for this patient. I have also personally directed, reviewed, and agree with the discharge instructions and disposition. Disposition/Present on Arrival - Present on Arrival Any Indicators Present on Arrival: No History of DVT/PE: No History of Uncontrolled Diabetes: No Urinary Catheter: No History of Decub. Ulcer: No History Surgical Site Infection Following: None - Disposition Have Diagnosis and Disposition been Completed?: Yes Diagnosis: Otitis media, Hypertension Disposition: HOME/ ROUTINE Disposition Time: 02:25 Patient Plan: Discharge Patient Problems: Current Active Problems Problem Status Onset Hypertension Acute Otitis media Acute Condition: GOOD Discharge Instructions (ExitCare): Ear Infections (Otitis Media), Controlling Your Blood Pressure Through Lifestyle, Medicines for High Blood Pressure Additional Instructions: DIANE LOONEY, thank you for letting us take care of you today. Your provider was Marty Martinez and you were treated for HBP/EAR PAIN. The emergency medical care you received today was directed at your acute symptoms. If you were prescribed any medication, please fill it and take as directed. It may take several days for your symptoms to resolve. Return to the Emergency Department if your symptoms worsen, do not improve, or if you have any other problems. Please contact your doctor or call one of the physicians/clinics you have been referred to that are listed on the Patient Visit Information form that is included in your discharge packet. Bring any paperwork you were given at discharge with you along with any medications you are taking to your follow up visit. Our treatment cannot replace ongoing medical care by a primary care provider outside of the emergency department. Thank you for allowing the [facility] team to be part of your care today. If you had an X-Ray or CT scan: A Radiologist will review the ED reading if any change in treatment is needed we will contact you. If you had a blood, urine, or wound culture: It will take several days for the results, if any change in treatment is needed we will contact you. If you had an STI test: It will take 48 hours for the results. Please call after 1 week if you have not heard back. Prescriptions: Amoxicillin 1,000 mg PO Q8H 7 Days #42 tablet Referrals: Rupesh Retana DO [Staff Provider] - Follow up with primary [email or web address] [Outside] - Follow up with primary [facility] - Follow up with primary [facility] [Outside] - Follow up with primary Forms: [employer] (Samoan)
[2018-07-23 23:51] LABS: BASO # 0.01 K/mm3 (0.0-2.0); BASO % 0.1 % (0.0-3.0); EOS # 0.1 (0.0-0.7); EOS % 0.9 % (1.5-5.0); GRAN # 9.19 (1.4-6.5); GRAN % 75.8 % (50.0-68.0); HEMOGLOBIN 12.5 g/dL (12.0-16.0); LYMPH # 2.1 (1.2-3.4); LYMPH % 17.4 % (22.0-35.0); MEAN CELL VOLUME 85.2 fl (80.0-105.0); MEAN CORPUSCULAR HGB CONC 32.8 g/dl (31.0-37.0); MEAN PLATELET VOLUME 9.9 fl (7.0-11.0); MONO # 0.7 (0.1-0.6); MONO % 5.8 % (1.0-6.0); RBC 4.47 10^6/uL (3.5-6.1); RED CELL DISTRIBUTION WIDTH 15.4 % (11.5-14.5); WHITE BLOOD COUNT 12.1 10^3/uL (4.5-11.0)
[2018-07-24 00:03] LABS: ALBUMIN 3.7 g/dL (3.0-4.8); ALT/SGPT 23 U/L (7-56); AST/SGOT 38 U/L (14-36); BLOOD UREA NITROGEN 16 mg/dL (7-21); CALCIUM 9.3 mg/dL (8.4-10.5); GFR NON-AFRICAN AMERICAN > 60
[2018-07-24 03:02] VITALS: BP 155/96; PULSE 80; O2SAT 99
--- NOTE | 2018-07-24 09:22 | CARD ---
APPROVED REPORT Date of service: 07/23/2018 EKG Measurement Heart [id number] <Conclusion> Sinus rhythm with frequent premature supraventricular complexes Left atrial enlargement Anteroseptal infarct, old
--- NOTE | 2018-07-24 10:13 | CT ---
Date of service: 07/24/2018 PROCEDURE: CT HEAD WITHOUT CONTRAST. HISTORY: ringing in ears COMPARISON: None available. TECHNIQUE: Axial computed tomography images were obtained through the head/brain without intravenous contrast. Radiation dose: Total exam DLP = 906.41 mGy-cm. This CT exam was performed using one or more of the following dose reduction techniques: Automated exposure control, adjustment of the mA and/or kV according to patient size, and/or use of iterative reconstruction technique. FINDINGS: HEMORRHAGE: No intracranial hemorrhage. BRAIN: No mass effect or edema. No atrophy or chronic microvascular ischemic changes. VENTRICLES: Unremarkable. No hydrocephalus. CALVARIUM: Unremarkable. PARANASAL SINUSES: Mucosal thickening and fluid levels in the maxillary and sphenoid sinuses. Mucosal thickening in the ethmoid sinuses MASTOID AIR CELLS: Bilateral otomastoiditis OTHER FINDINGS: The report concurs with the preliminary [facility] report IMPRESSION: No acute intracranial findings. Bilateral chronic otomastoiditis. Sinusitis
== END 2018-07-24 03:01 | disposition home or self-care (01) ==
LOC: ED 21:51
DX: I10 Essential (primary) hypertension (principal); H66.91 Otitis media, unspecified, right ear; Z95.2 Presence of prosthetic heart valve; Z95.1 Presence of aortocoronary bypass graft